=== PATIENT | male | born 1940 | race Caucasian/White ===

== ENCOUNTER 2023-10-03 17:30 | Inpatient (IN) | payer MEDICARE, OTHER, SELFPAY ==
[2023-10-03] VITALS (15 sets, daily range): BP systolic 101–152; BP diastolic 51–91; BMI 20.9
--- NOTE | 2023-10-03 12:01 | ED.GENMED ---
History of Present Illness
General
Chief Complaint: Abnormal Lab Value
Source: patient
Time Seen by Provider: 10/03/23 11:34
Travel History
Have you had any contact with someone who has COVID-19?: No
Do you have any symptoms of coronavirus? Fever > 100 degrees, chills, cough, shortness of breath, sore throat, loss of taste or smell, muscle aches, or headache?: No
History of Present Illness
History of Present Illness:
83-year-old male sent to the emergency room from nephrology office. Patient evidently had abnormal labs showing acute renal failure. Patient is not able to provide a detailed history. He denies any abdominal pain. He denies any fever or chills.
Past History
Past History
ED Past Medical History: CAD, CHF, Hypercholesterolemia and NIDDM
ED Past Surgical History: Appendectomy
Social History
Living: [facility]
Phy Exam
Physical Exam
Physical Exam:
General: Awake, Alert, Oriented X3. No distress, very thin, appears chronically ill, pale complexion
Vitals: Borderline temperature of 100.2 orally
Head: Atraumatic
Eyes: Pupils equal, EOMI
Throat: Airway intact, no exudates, very dry mucosa
Neck: Trachea midline
Lungs: Clear and equal b/l
Heart: Regular rate, no murmurs
Abd: Soft, Nontender, No pulsatile mass
Neuro: Left facial droop, grossly nonfocal
Skin: Warm, dry, no rash
Extremities: pulses equal b/l, no edema
Course
Orders/Labs/Results
Orders:
Orders
10/03/23 11:58
Basic Metabolic Panel Urgent
Complete Blood Count/With Diff Urgent
Lactate Level [Lactic Acid] Urgent
Magnesium Urgent
Phos [Phosphorus] Urgent
10/03/23 12:03
Blood Culture Urgent
JOHN Source: Blood/Venous
Specimen Description:
CR Chest - 2 Views Urgent
Comment:
Reason For Exam: fever
10/03/23 12:04
Blood Culture Urgent
JOHN Source: Blood/Venous
Specimen Description:
10/03/23 12:08
COVID-19 Antigen Urgent
Source: Nasal Swab
Influenza A+B Rapid Molecular Urgent
JOHN Source: Nasal Swab
Specimen Description:
10/03/23 12:36
Type+Screen Urgent
BBK Wristband Number:
10/03/23 12:37
Urinalysis Reflex To Culture Urgent
Date Specimen was Collected: 10/03/23
Time Specimen was Collected: 12:36
Urine Microscopic Reflex Cult Urgent
Urine Culture Urgent
JOHN Source: U
Specimen Description:
Obtained by: Random
Date Specimen was Collected: 10/03/23
Time Specimen was Collected: 12:36
10/03/23 12:56
0.9% Sodium Chloride 500 ml [Nss] 500 ml IV BOLUS
10/03/23 13:40
Cefepime HCl [Maxipime] 2,000 mg IV NOW STA
10/03/23 13:47
Sterile Water [Sterile Water For Injection] 10 ml .ROUTE .[facility]
10/03/23 14:41
Body Fluid for Eosinophils Routine
Urinalysis Routine
Urine Creatinine Routine
Urine Sodium Routine
Renal Only US [US Renal Only W/O Bladder] Routine
Comment:
Reason For Exam: JOSAFAT
10/03/23 14:45
Sterile Water For Inj [Sterile Water For Injection 1000 ml] 1,000 ml Sodium Bicarbonate 150 meq IV 100 mls/hr
Abnormal Lab Results
10/03/23 10/03/23
11:58 12:37
WBC 21.0 H 10^3/uL
(4.8-10.8)
RBC 3.21 L 10^6/uL
(4.70-6.10)
Hgb 9.2 L g/dL
(13.0-18.0)
Hct 29.3 L %
(39.0-52.0)
MCHC 31.4 L g/dL
(33.0-37.0)
Abs Immat Gran (auto) 0.1 H 10^3/uL
(0-0.05)
Absolute Neuts (auto) 18.4 H 10^3/uL
(1.4-6.5)
Absolute Lymphs (auto) 0.9 L 10^3/uL
(1.2-3.4)
Absolute Monos (auto) 1.4 H 10^3/uL
(0.1-0.6)
Immature Gran % 0.7 H %
(0-0.5)
Neutrophils % 87.9 H %
(42.2-75.2)
Lymphocytes % 4.3 L %
(20.5-51.1)
Chloride 108 H mmol/L
(98-107)
Carbon Dioxide 16 L mmol/L
(22-30)
BUN 96 H mg/dl
(9-20)
Creatinine 4.8 H* mg/dL
(0.7-1.3)
Glucose 153 H mg/dl
(70-99)
Ur Occult Blood Reflex 4+ A
(Negative)
Leukocyte Esterase Rfl 2+ A
(Negative)
Urine RBC 30-40 A /HPF
(0-2)
Urine WBC (Reflex) 11-15 A /HPF
(0-5)
Urine Bacteria (Reflex) Moderate A
(Negative)
Urine Albumin (Reflex) 1+ A
(Neg - Trace)
10/03/23 11:58
10/03/23 11:58
Vital Signs
Initial and Last Documented VS:
Initial Vital Signs
Temp Pulse Resp BP Pulse Ox
100.2 F 85 16 117/52 95
10/03/23 11:28 10/03/23 11:28 10/03/23 11:28 10/03/23 11:28 10/03/23 11:28
Last Documented Vital Signs
Temp Pulse Resp BP Pulse Ox
99.4 F 85 16 117/52 95
10/03/23 13:53 10/03/23 11:28 10/03/23 11:28 10/03/23 11:28 10/03/23 11:28
MDM/Problems Addressed
Differential Diagnosis Includes:
Bladder outlet obstruction, dehydration, ATN
MDM/Problems Addressed:
Patient presents with high creatinine. Patient had blood work here about a year ago at which point the creatinine was 1.1. Patient is not able to provide much history. Bladder scan shows 220 cc urine. He was straight cathed. Urine will be sent
for urinalysis and culture. Patient appears dry clinically so we will start some IV fluid. He was noted to have a low-grade fever of 100.2. COVID and flu are negative. Lactate is normal. Chest x-ray shows no acute abnormalities. Patient will
require hospitalization for further evaluation and management of acute renal failure
Chronic conditions affecting care: HTN
*Radiology
Radiology exam reviewed: radiology read reviewed
*Pulse Oximetry
Patient hypoxic: no
*Critical Care Note
Total Time (30-74mins, 75-104mins- exclusive of procedures): Not Applicable
ED Attending Note
-
Portions of this chart may have been created with voice recognition software.� Occasional wrong word or��sound alike� substitutions may have occurred due to the inherent limitations of voice recognition software.
Discharge Plan
Departure
Patient Disposition: Admit
Date of Disposition: 10/03/23
Time of Disposition: 12:57
Admit to: Telemetry
Presentation/result/management discussed w/ accepting MD/DO: Hospitalist
Condition: Fair
Discharge Problem:
Acute renal failure (ARF)
Prescriptions:
No Action
atorvastatin [Lipitor] 40 mg Tablet
40 mg PO DAILY
acetaminophen [Tylenol] 325 mg Tablet
650 mg PO Q4HPRN PRN (Reason: MILD PAIN)
ipratropium-albuterol 0.5 mg-3 mg(2.5 mg base)/3 mL Solution For Nebulization
3 ml INHALATION R Q6HPRN PRN (Reason: SOB)
magnesium hydroxide [Milk of Magnesia] 400 mg/5 mL Suspension
2,400 mg PO DAILY PRN (Reason: CONSTIPATION)
tamsulosin [Flomax] 0.4 mg Capsule
0.4 mg PO DAILY
ferrous sulfate 325 mg (65 mg iron) Tablet
325 mg PO DAILY
esomeprazole magnesium 40 mg Capsule,Delayed Release(Dr/Ec)
40 mg PO DAILY
mometasone 50 mcg/actuation Harmony,Non-Aerosol
2 spray INTRANASAL DAILY
fluticasone propionate 50 mcg/actuation Harmony,Suspension
2 spray INTRANASAL DAILY
finasteride 5 mg Tablet
5 mg PO DAILY
cyclosporine [Restasis] 0.05 % Dropperette
1 drp BOTH EYES DAILY
metoprolol tartrate 25 mg Tablet
25 mg PO BID
mirtazapine 7.5 mg Tablet
7.5 mg PO HS Qty: 30 0RF
acetaminophen [Tylenol] 325 mg Tablet
650 mg PO Q6HPRN PRN (Reason: FEVER)
aspirin 81 mg Tablet,Chewable
81 mg PO DAILY
Hold Instructions: Resume on 10/12/22.
levofloxacin 750 mg tablet
750 mg PO DAILY Qty: 7 0RF
Interventions
Interventions:
*Risk Screen - Suicide Last Done: 10/03/23 11:28
*General Assessment Last Done: 10/03/23 11:28
*Neglect/Abuse Screening Last Done: 10/03/23 11:28
*ED COVID-19 Vaccine History Last Done: 10/03/23 12:00
Discharge Date and Time
Print Language: ARABIC
[2023-10-03 12:29] LABS: % Basophils 0.3 % (0-2); % Immature Granulocytes 0.7 % (0-0.5); % Lymphocytes 4.3 % (20.5-51.1); % Monocytes 6.8 % (1.7-9.3); % Neutrophils 87.9 % (42.2-75.2); Absolute Basophils 0.1 10^3/uL (0-0.2); Absolute Immature Granulocytes 0.1 10^3/uL (0-0.05); Absolute Lymphocytes 0.9 10^3/uL (1.2-3.4); Absolute Monocytes 1.4 10^3/uL (0.1-0.6); Absolute Neutrophils 18.4 10^3/uL (1.4-6.5); Hematocrit 29.3 % (39.0-52.0); Hemoglobin 9.2 g/dL (13.0-18.0); Mean Corp Hgb Conc. 31.4 g/dL (33.0-37.0); Mean Corpuscular Hgb 28.7 pg (27.0-31.0); Mean Corpuscular Volume 91.3 fL (80.0-94.0); Mean Platelet Volume 10.3 fL (7.4-10.4); Nucleated Red Blood Cells % 0 % (-); Platelet Count 318 10^3/uL (130-400); Red Blood Cell Count 3.21 10^6/uL (4.70-6.10)
[2023-10-03 12:48] LABS: Lactic Acid 1.9 mmol/L (0.7-2.0)
[2023-10-03 12:48] LABS: COVID-19 Antigen Negative (Negative)
[2023-10-03 12:51] LABS: Blood Urea Nitrogen 96 mg/dl (9-20); Calcium 8.9 mg/dl (8.4-10.2); Carbon Dioxide 16 mmol/L (22-30); Chloride 108 mmol/L (98-107); Glucose 153 mg/dl (70-99); Magnesium 1.7 mg/dl (1.6-2.3); Phosphorus 4.2 mg/dl (2.5-4.5); Sodium 136 mmol/L (135-145)
[2023-10-03 12:58] LABS: Potassium 4.9 mmol/L (3.5-5.1)
[2023-10-03 12:59] LABS: Urine Albumin 1+ (Neg - Trace); Urine Bilirubin Negative (Negative); Urine Character Slightly Cloudy (Clear); Urine Color Yellow; Urine Glucose Negative (Negative); Urine Ketone Negative (Negative); Urine Leukocyte 2+ (Negative); Urine Nitrite Negative (Negative); Urine Occult Blood 4+ (Negative); Urine Urobilinogen Negative (Neg - 1+)
[2023-10-03] MEDS: NSS 500 IV (13:15)
--- NOTE | 2023-10-03 13:16 | PHANOTE ---
med rec note- patient coming from md office but live at [facility], called [phone] and asked for med list to faxed over. station 2 stated she will need about an hour to get it together
[2023-10-03 13:17] LABS: Urine Bacteria Moderate (Negative); Urine Red Blood Cell 30-40 /HPF (0-2)
[2023-10-03] MEDS: MAXIPIME 2000 MG IV (13:50)
--- NOTE | 2023-10-03 14:01 | HPS.HSE ---
Addendum entered and electronically signed by Alek Tripathi MD 10/03/23 21:41:
Attending Addendum-
I performed a history and physical exam of the patient and discussed his management with the resident. I reviewed the resident's note and agree with the documented findings and plan of care Patient sent to ED from nephro due to JOSAFAT. Patient coming
from [facility] when he has been getting progressively weaker and sustained a fall. H/O from records and daughter/POA. Patient only speaks [place]. Feels full and having difficulty urinating. Full 12 point ROS reviewed and negative except as
documented. Exam: chronically ill appearing CV RRR lungs scattered rhinchi at bases b/l abd soft distended palp bladder LE no edema Skin- dry Plan-
# JOSAFAT on CKD 3a- check renal US, straight cath for urine/elevated PVRs, check Fena start IVF, c/s nephro await urine cx
# Acidosis- start bicarb per nephro repeat labs in am
# B/L PNA/Leukocytosis- start vanco-renally adjust, continue cefepime repeat labs in am
# Dementia- watch for delirium
# CAD/stent- cont meds
# BPH- cont meds
# HLD- cont meds
# GERD- cont meds
# Depression- cont meds
# HTN- stable monitor cont meds
# PreDM- check hba1c check TSH
Dispo- eventual DC back to [facility]/SNF
Time spent coordinating care, review of plan of care with resident, review of records, med rec, consults, notes, labs, rads, d/w nursing, pharmacy, nephro - 78 mins
Original Note:
Family Physician
-
Family Physician: Suhas Pitts
Juan Diego López
Chief Complaint
-
Acute Kidney Injury
History of Present Illness
This is an 83-year-old patient who mainly speaks [place] with PMH of GERD, CAD, dyslipidemia, chronic anemia, iron deficiency anemia, BPH, prediabetic, depression who presented to the ED after being sent over by his avionics supervisor, Dr. Yoo. He
currently lives at [facility] where was noticed that he had rising creatinine on his blood work which he then was taken to see Dr. Yoo. He was in the room with his daughter who provided the history. The daughter states that she had not
noticed any changes from his baseline and [facility] noticed that he was 'weak' a day ago. She also states that in the past he had a Gonzales catheter when he was unable to urinate in the past that was subsequently removed. During
the visit with his avionics supervisor creatinine was 4.8 and he was referred to the ED. The daughter states that their primary care physician is . His other chronic diagnoses have been stable.
Medical History
Past Medical History
Past Medical History: Reports CAD, GERD, HTN and Hypercholesterolemia
Additional Past Medical History:
Prediabetes, depression, BPH, chronic anemia, iron deficiency anemia
Past Surgical History: Reports Appendectomy and Cardiac (stent x1)
Social History
Tobacco: Former Smoker (Quit 35 years ago)
Alcohol: None
Living: [facility]
Family History
Family History: Not pertinent
Allergies / Home Medications
Allergies reflects when Allergies were last updated in 20:20 Mobile.
Home Medications with original date entered in 20:20 Mobile
Home Medications
�Medication �Instructions �Recorded
atorvastatin 40 mg tablet (Lipitor) 40 mg PO QPM High cholesterol 09/06/22
esomeprazole magnesium 40 mg 40 mg PO DAILY Gastrointestinal 09/06/22
capsule,delayed release issue
finasteride 5 mg tablet 5 mg PO DAILY Urinary issue 09/06/22
metoprolol tartrate 25 mg tablet 25 mg PO BID Blood pressure 09/06/22
tamsulosin 0.4 mg capsule (Flomax) 0.4 mg PO QPM Urinary issue 09/06/22
acetaminophen 325 mg tablet 650 mg PO Q4HPRN PRN fever 10/03/23
(Tylenol)
acetaminophen 325 mg tablet 650 mg PO Q6HPRN PRN mild pain 10/03/23
(Tylenol)
aspirin 81 mg tablet,delayed 81 mg PO DAILY 10/03/23
release
brimonidine 0.2 %-timolol 0.5 % 1 drp LEFT EYE BID 10/03/23
eye drops (Combigan)
carboxymethylcellulose 1 drp BOTH EYES HS 10/03/23
sod-hypromell 0.25 %-0.3 % eye
liquid gel drops
cyclosporine 0.05 % eye drops in a 1 drp BOTH EYES Q12H 10/03/23
dropperette (Restasis)
erythromycin 5 mg/gram (0.5 %) eye 0.25 inch LEFT EYE BID 10/03/23
ointment
ferrous sulfate 325 mg (65 mg 325 mg PO BID 10/03/23
iron) tablet
fluticasone propionate 50 2 spray intranasal DAILY 10/03/23
mcg/actuation nasal
spray,suspension
mirtazapine 15 mg tablet 7.5 mg PO HS 10/03/23
Allergy/Medication List:
Patient Allergies
Allergy/AdvReac Type Severity Reaction Status Date / Time
No Known Drug Allergies Allergy Unknown Verified 01/19/23 14:14
Review of Systems
-
History Source: Patient and Family
A 12 point ROS was completed and negative except as noted: Yes
Constitutional: Denies Fever or Chills
Respiratory: Denies Trouble Breathing
Abdomen/GI: Denies Abdominal Pain
Physical Exam
Vital Signs
Vital Signs
Temp Pulse Resp BP Pulse Ox
99.4 F 85 16 117/52 95
10/03/23 13:53 10/03/23 11:28 10/03/23 11:28 10/03/23 11:28 10/03/23 11:28
Physical Exam
General: Appears Chronically Ill (Appears thin)
HEENT: NormoCephalic
Respiratory: Rhonchi
Cardiac: S1/S2, Regular Rhythm and Murmur
GI: Soft and Non Tender
Musculoskeletal: No Edema
Skin: Dry
Neuro: Awake, Alert and Oriented
Psych: Calm
Laboratory Results
-
10/03/23 11:58
10/03/23 11:58
Laboratory Results
Lactic Acid 1.9 mmol/L (0.7-2.0) 10/03/23 11:58
Impression/Plan
-
IMPRESSION:
This is an 83-year-old patient who mainly speaks [place] with PMH of GERD, CAD, dyslipidemia, chronic anemia, iron deficiency anemia, BPH, prediabetic, depression who presented to the ED after being sent over by his avionics supervisor after noticing
increased creatinine at 4.8.
PLAN:
#JOSAFAT/CKD3a
-U/A showed UTI (leukocyte esterase, bacteria), urine culture pending
-Lactate normal
-Nephrology consulted
-Sodium bicarb initiated as per nephrology
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
-urine studies pending
-Bladder scan with straight cath per nephrology
-Started IV fluids, Monitor I/Os
-blood cultures sent
-Monitor BMP, cbc
#Leukocytosis
-CXR today showed mild interstitial airway disease at the posterior lung bases suggesting bibasilar interstitial pneumonia
-abfrebile
-Had single dose of IV cefepime 2000 mg
-Initiated vancomycin
-Monitor CBC and BMP
#Prediabetes
-HbA1c ordered
-Low ISS started
#BPH
-Continue Flomax, finasteride
#Chronic Anemia
-Stable
-Continue ferrous sulfate
#Dyslipidemia
-Continue atorvastatin
#Depression
-Continue mirtazapine
DVT ppx: Hep 5000u Q8
Code: DNR
--- NOTE | 2023-10-03 14:31 | W.CON.NEPH ---
Consultation
-
Date/Time Consultation Requested: October 03, 2023 11 AM
Date/Time Consultation Performed: October 03, 2023 2 PM
Requesting Provider: Dr. Ochoa
Performing Provider: Dr. Agarwal
Reason for Consultation: Acute kidney injury
Medical History
-
Chief Complaint: Acute kidney injury
History of Present Illness:
This is AN 83-year-old [place]wanan-speaking gentleman who currently resides at [facility] for at least the last 8 months time. The history was primarily taken from the daughter. Prior to living at [facility] he had living at home in [facility]
[place] without issues. He had a primary care physician who had seen approximately every other month but got lower to every 6 months. They state that they were never told of any abnormalities with his renal function. The only abnormality is
a new about on his blood work was anemia. Ultimately, he ended up at [facility] for rehabilitation. Daughter had actually considered taking him home at 1 point not long ago as he appeared to be getting stronger. Then more recently he began
getting weaker. At 1 point she says that he had a Gonzales catheter which was then subsequently removed. He also then began having orthostasis and some imbalance and possibly a fall in the bathroom. Blood work had shown progressively rising
creatinine and he was sent to see Dr. Yoo in our office today. At that visit it was noted that his creatinine had risen further to 4.8 and given the history of present to the emergency room for evaluation and admission.
He is on Flomax for BPH, Lipitor for hyperlipidemia, metoprolol for hypertension. These issues have been otherwise fairly stable. The daughter says that he only has prediabetes.
Past Medical History
Glucose intolerance, anemia, depression, hyperlipidemia, hypertension, GERD, ulcerative colitis, CKD unknown stage, overactive bladder, urogenital implants
Social History
Tobacco: Former Smoker
Alcohol: None
Family History
No known CKD
Allergies / Home Medications
Allergy/AdvReac Type Severity Reaction Status Date / Time
No Known Drug Allergies Allergy Unknown Verified 01/19/23 14:14
�Medication �Instructions �Recorded �Confirmed �Type
acetaminophen 325 mg tablet 650 mg PO Q4HPRN PRN MILD PAIN 09/06/22 09/25/22 History
(Tylenol)
atorvastatin 40 mg tablet (Lipitor) 40 mg PO DAILY High cholesterol 09/06/22 09/25/22 History
cyclosporine 0.05 % eye drops in a 1 drp BOTH EYES DAILY Eye condition 09/06/22 09/25/22 History
dropperette (Restasis)
esomeprazole magnesium 40 mg 40 mg PO DAILY Gastrointestinal 09/06/22 09/25/22 History
capsule,delayed release issue
ferrous sulfate 325 mg (65 mg 325 mg PO DAILY Supplement 09/06/22 09/25/22 History
iron) tablet
finasteride 5 mg tablet 5 mg PO DAILY Urinary issue 09/06/22 09/25/22 History
fluticasone propionate 50 2 spray intranasal DAILY Allergies 09/06/22 09/25/22 History
mcg/actuation nasal
spray,suspension
ipratropium 0.5 mg-albuterol 3 mg 3 ml inhalation R Q6HPRN PRN SOB 09/06/22 09/25/22 History
(2.5 mg base)/3 mL nebulization
soln
magnesium hydroxide 400 mg/5 mL 2,400 mg PO DAILY PRN CONSTIPATION 09/06/22 09/25/22 History
oral suspension (Milk of Magnesia)
metoprolol tartrate 25 mg tablet 25 mg PO BID Blood pressure 09/06/22 09/25/22 History
mometasone 50 mcg/actuation nasal 2 spray intranasal DAILY Allergies 09/06/22 09/25/22 History
spray
tamsulosin 0.4 mg capsule (Flomax) 0.4 mg PO DAILY Urinary issue 09/06/22 09/25/22 History
mirtazapine 7.5 mg tablet 7.5 mg PO HS #30 tabs 09/12/22 09/25/22 Rx
acetaminophen 325 mg tablet 650 mg PO Q6HPRN PRN FEVER 09/25/22 09/25/22 History
(Tylenol)
aspirin 81 mg chewable tablet 81 mg PO DAILY Blood clot 09/25/22 09/25/22 History
prevention/tx
levofloxacin 750 mg tablet 750 mg PO DAILY #7 tabs 01/19/23 Rx
Review of Systems
-
No pain, no fevers, no chills. No shortness of breath. No abdominal pain. He has constipation. No issues with urine output. No issues with appetite. Daughter says that he does not drink enough fluid. The remainder of the complete review of
systems was negative.
Physical Exam
Vital Signs
Vital Signs
Temp Pulse Resp BP Pulse Ox
99.4 F 85 16 117/52 95
10/03/23 13:53 10/03/23 11:28 10/03/23 11:28 10/03/23 11:28 10/03/23 11:28
Lab Results
WBC 21.0 10^3/uL (4.8-10.8) H 10/03/23 11:58
RBC 3.21 10^6/uL (4.70-6.10) L 10/03/23 11:58
Hgb 9.2 g/dL (13.0-18.0) L 10/03/23 11:58
Hct 29.3 % (39.0-52.0) L 10/03/23 11:58
Plt Count 318 10^3/uL (130-400) 10/03/23 11:58
Sodium 136 mmol/L (135-145) 10/03/23 11:58
Potassium 4.9 mmol/L (3.5-5.1) 10/03/23 11:58
Chloride 108 mmol/L (98-107) H 10/03/23 11:58
Carbon Dioxide 16 mmol/L (22-30) L 10/03/23 11:58
BUN 96 mg/dl (9-20) H 10/03/23 11:58
Creatinine 4.8 mg/dL (0.7-1.3) H* 10/03/23 11:58
eGFR 11.30 10/03/23 11:58
Glucose 153 mg/dl (70-99) H 10/03/23 11:58
Calcium 8.9 mg/dl (8.4-10.2) 10/03/23 11:58
Phosphorus 4.2 mg/dl (2.5-4.5) 10/03/23 11:58
Physical Exam
Patient is awake alert oriented and in no distress. Mood and affect were pleasant, insight and judgment were good. Pupils are equal round and reactive to light, extraocular movements are intact, sclera were anicteric. Hearing was normal, ears and
nose are intact. Oropharynx was dry. Neck was supple with trachea midline and no thyromegaly. Heart was regular rate and rhythm without rubs. Lower extremities without edema. Lungs were clear to auscultation bilaterally and with normal excursion.
Abdomen was soft, nontender, with normal active bowel sounds, and no hepatosplenomegaly. Skin was without rash and with normal turgor.
Data Reviewed
-
Medical Tests (Nuc Med, Echo etc): Image Personally Visualized and interpreted (Chest x-ray on 10/03/2023 by my reading shows faint bilateral basilar opacity)
Labs: Labs Reviewed by me (Creatinine 4.8, potassium 4.9, bicarbonate 16, phosphorus 4.2, magnesium 1.7, calcium 8.9, hemoglobin 9.2, WBC 21)
Old Records: Reviewed (on September 28, 2023 creatinine 3.66, on September 19, 2023 creatinine 3.48, on September 12, 2023 creatinine 4.08, On September 02, 2023 creatinine 3.76, on September 27, 2022 creatinine 1.48)
Assessment/Plan
-
Assessment:
JOSAFAT
Hypotension relative
Probable pneumonia
Leukocytosis
Metabolic acidosis
Hyperlipidemia
Anemia
Falls
Plan:
IV fluids with bicarbonate
Empiric antibiotics for pneumonia
Renal ultrasound
Urine studies
No fluoroquinolones
Check urine eosinophils
I discussed with length with the daughter regarding the possibility of dialysis. She says that they would not refuse dialysis if she required it.
[2023-10-03] MEDS: SODIUM BICARBONATE 1150 MEQ IV (15:27)
[2023-10-03] MEDS: VANCOCIN 300 MG IV (17:22)
[2023-10-03] MEDS: VANCOCIN 300 ML IV (17:22)
[2023-10-03] MEDS: ASPIR LOW (ENTERIC COATED) 81 MG PO (21:00)
[2023-10-03] MEDS: FEOSOL 325 MG PO (21:00)
[2023-10-03] MEDS: LIPITOR 40 MG PO (21:00)
[2023-10-03] MEDS: FLOMAX 0.400000000000000022 MG PO (21:00)
[2023-10-03] MEDS: LOPRESSOR 25 MG PO (21:00)
[2023-10-03] MEDS: REMERON 7.5 MG PO (21:33)
[2023-10-03] MEDS: RESTASIS 0.05% OPHTHALMIC EMULSION 1 DROPS BOTH EYES (21:34)
[2023-10-03] MEDS: REFRESH CELLUVISC GEL 1 DROPS BOTH EYES (21:34)
[2023-10-03] MEDS: COMBIGAN EYE DROPS 1 DROP LEFT EYE (21:35)
[2023-10-04] VITALS (18 sets, daily range): BP systolic 90–128; BP diastolic 45–73; BMI 20.9
[2023-10-04] MEDS: HEPARIN 5000 UNITS SC ×4 (00:26→23:52)
[2023-10-04] MEDS: SODIUM BICARBONATE 1150 MEQ IV (03:02)
[2023-10-04 06:33] LABS: % Basophils 0.6 % (0-2); % Eosinophils 2.9 % (0-6); % Monocytes 9.3 % (1.7-9.3); % Neutrophils 75.2 % (42.2-75.2); Absolute Basophils 0.1 10^3/uL (0-0.2); Absolute Eosinophils 0.5 10^3/uL (0-0.7); Absolute Immature Granulocytes 0.2 10^3/uL (0-0.05); Absolute Lymphocytes 1.7 10^3/uL (1.2-3.4); Absolute Monocytes 1.5 10^3/uL (0.1-0.6); Absolute Neutrophils 11.9 10^3/uL (1.4-6.5); Hematocrit 23.6 % (39.0-52.0); Hemoglobin 7.5 g/dL (13.0-18.0); Mean Corp Hgb Conc. 31.8 g/dL (33.0-37.0); Mean Corpuscular Hgb 28.7 pg (27.0-31.0); Mean Corpuscular Volume 90.4 fL (80.0-94.0); Mean Platelet Volume 10.3 fL (7.4-10.4); Nucleated Red Blood Cells % 0 % (-); Platelet Count 241 10^3/uL (130-400); Red Blood Cell Count 2.61 10^6/uL (4.70-6.10); White Blood Cell Count 15.7 10^3/uL (4.8-10.8)
[2023-10-04 07:28] LABS: Blood Urea Nitrogen 103 mg/dl (9-20); Calcium 8.1 mg/dl (8.4-10.2); Carbon Dioxide 21 mmol/L (22-30); Chloride 105 mmol/L (98-107); Estimated Creatinine Clearance 11 ml/min; Glucose 86 mg/dl (70-99); Potassium 4.2 mmol/L (3.5-5.1); Sodium 136 mmol/L (135-145); eGFR 14.06
[2023-10-04 08:05] LABS: Free T4 1.54 ng/dl (0.78-2.19)
[2023-10-04] MEDS: PROSCAR 5 MG PO (08:33)
[2023-10-04] MEDS: PROTONIX 40 MG PO (08:33)
[2023-10-04] MEDS: LOPRESSOR 25 MG PO ×2 (08:35→19:54)
[2023-10-04] MEDS: ASPIR LOW (ENTERIC COATED) 81 MG PO (08:35)
[2023-10-04 08:36] LABS: Urine Protein 71 mg/dl; Urine Sodium 28 mmol/L (30-90)
[2023-10-04] MEDS: COMBIGAN EYE DROPS 1 DROP LEFT EYE ×2 (08:36→20:20)
[2023-10-04] MEDS: FEOSOL 325 MG PO (08:36)
[2023-10-04 08:40] LABS: Body Fluid for Eosinophils No Eosinophils seen
[2023-10-04 09:09] LABS: Glycohemoglobin (HgbA1c) 5.6 % (4.0-5.6)
[2023-10-04] MEDS: RESTASIS 0.05% OPHTHALMIC EMULSION BOTH EYES (10:00)
[2023-10-04 10:32] LABS: Vancomycin Random 11.2 ug/ml
--- NOTE | 2023-10-04 10:47 | PHA.VAN.IN ---
Assessment
- Assessment
Renal Function: Appears elevated from baseline (SCR 4.8-->4 vs 1.1 in 2022)
Concomitant Antimicrobials: cefepime
Laboratory Tests
10/04/23
09:55
Random Vancomycin 11.2
Level drawn ~16.5H after 1500mg loading dose
Plan
- Plan
Initial / Loading Dose: 1500mg - 10/02 17:22
Maintenance Regimen: dosing by level - give 750mg x1 today
Monitoring: random 10/04 0600
Pharmacokinetics Vancomycin I
- -
Patient Age: 83
Patient Sex: Male
Vancomycin Day #: 1
Indication: Pulmonary/Respiratory
Requesting Provider: Miko Penn
Pertinent Antimicrobial Allergies:
NKDA
Height / Weight:
Height 5 ft 6 in
Actual Weight 58.6 kg
- Vital Signs / Lab Results
Temp Pulse Resp BP Pulse Ox
97.8 F 72 16 117/55 97
10/04/23 08:34 10/04/23 08:34 10/04/23 08:34 10/04/23 08:34 10/04/23 08:34
Lab Results - Hematology
10/03/23 10/04/23
11:58 06:19
WBC 21.0 H 15.7 H
Lab Results - Chemistry
10/03/23 10/04/23
11:58 06:19
BUN 96 H 103 H*
Creatinine 4.8 H* 4.0 H
Estimated Creat Clear 11
10/03/23
11:58
Lactic Acid 1.9
Lab Results - Urine
10/03/23
12:37
Urine Nitrite (Reflex) Negative
Leukocyte Esterase Rfl 2+ A
Urine WBC (Reflex) 11-15 A
Urine Bacteria (Reflex) Moderate A
Microbiology Results
10/03/23 12:37 Urine Culture - Preliminary
Urine Staphylococcus aureus
10/03/23 12:08 Influenza Types A & B (GERARD) - Final
Nasal Swab Negative for Influenza A & B, NAAT
Negative results must be combined with clinical observations
and patient history.
Nucleic Acid Amplification test (NAAT)performed on the
GFS IT platform.
--- NOTE | 2023-10-04 11:40 | W.PN.HOSP.TC ---
Addendum entered and electronically signed by Alek Tripathi MD 10/04/23 22:22:
Attending Addendum-
I saw and evaluated the patient. I reviewed the resident's note and agree with the documented findings and plan of care Patient speaks broken Nepali, primarily Maldivian. wet moist cough, Complains of not having BM and urinary difficulty.. Full 12
point ROS reviewed and negative except as documented. Exam: chronically ill appearing CV RRR lungs scattered rhonchi at bases b/l abd soft NT POS BS non palp bladder LE no edema Skin-dry Plan-
# JOSAFAT on CKD 3a- improving, renal US reviewed multicystic, straight cath for urine/elevated PVRs, Fena@ 1 likely prerenal but r/o intrinsic, cont IVF, nephro input appreciated await urine cx sens-s aureus
# Acidosis- resolving, DC bicarb cont IVF repeat labs in am
# UTI- cont abx- vanco- staph aureus awaiting sensitivities
# Anemia- likely due to chronic disease and GRABIEL- cont iron, repeat CBC in am no indication for transfusion at this time
# Urinary Retention/BPH- cont straight cath prn for elevated PVRs cont to monitor cont meds start bowel reg
# B/L PNA/Leukocytosis- likely aspiration, cont vanco-renally adjust, DC cefepime start Unasyn, speech eval
# Dysphagia- modify diet, speech eval
# Dementia- watch for delirium
# CAD/stent- cont meds
# HLD- cont meds
# GERD- cont meds
# Depression- cont meds
# HTN- stable monitor cont meds
# PreDM-hba1c 5.6 TSH mild elevation normal t4
Dispo- eventual DC back to [facility]/SNF
Time spent coordinating care, review of plan of care with resident, review of records, med rec, consults, notes, labs, rads, d/w nursing, pharmacy - 58 mins
Original Note:
Today's Communication/Plan
-
Discontinued Cefepime, started Unasyn
Continue Vancomycin
Speech eval
Assessment / Plan
Assessment / Plan
IMPRESSION:
This is an 83-year-old patient who mainly speaks Maldivian with PMH of GERD, CAD, dyslipidemia, chronic anemia, iron deficiency anemia, BPH, prediabetic, depression who presented to the ED after being sent over by his dragline operator helper after noticing
increased creatinine at 4.8.
PLAN:
#JOSAFAT (most likely due to prerenal/hypovolemia)/CKD3a
-U/A showed UTI (leukocyte esterase, bacteria), urine culture pending
-Lactate normal
-Nephrology following
-Sodium bicarb initiated as per nephrology
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
-Bladder scan with straight cath per nephrology
-possible retention due to backed up stool; started colace
-JOSAFAT most likely due to prerenal causes (FeNA 1.1%, urine sodium 28)
-Creatinine decreased to 4, BUN increased to 103
-Continue IV fluids, Monitor I/Os
-blood cultures negative
-Speech eval: changed diet to bite sized/thin liquids for aspiration precautions
-PT/OT eval pending
-Monitor BMP, cbc
#?Pneumonia
-CXR today showed mild interstitial airway disease at the posterior lung bases suggesting bibasilar interstitial pneumonia
-abfrebile, mild bilateral rhonchi
-WBC trended down
-has bed sore located on sacrum
-Discontinued cefepime
-Started Unasyn for empiric coverage and possible aspiration pneumonia coverage
-Continue vancomycin
-Monitor CBC and BMP
#Prediabetes
-HbA1c 5.6%
-Low ISS
#BPH
-Continue Flomax, finasteride
#Chronic Anemia
-HB 7.5 today
-Hold ASA
-Ordered fecal occult blood test
-Continue ferrous sulfate
#Dyslipidemia
-Continue atorvastatin
#Depression
-Continue mirtazapine
DVT ppx: Hep 5000u Q8
Code: DNR
Anticipated Discharge: > 48 hours
Subjective/Interval History
-
Date of Service: October 04, 2023
Objective Data
-
Labs:
Laboratory Results
10/04/23
06:19
WBC 15.7 H
Hgb 7.5 L
Hct 23.6 L
Plt Count 241 D
Sodium 136
Potassium 4.2
Chloride 105
Carbon Dioxide 21 L
BUN 103 H*
Creatinine 4.0 H
Glucose 86
Calcium 8.1 L
Vital Signs:
Vital Signs
Temp Pulse Resp BP Pulse Ox
97.8 F 72 16 117/55 97
10/04/23 08:34 10/04/23 08:34 10/04/23 08:34 10/04/23 08:34 10/04/23 08:34
Review of Systems
-
Unable to obtain full review of systems at this time due to: Language Barrier
History Source: Patient
Physical Exam
-
General: No Apparent Distress and Appears Chronically Ill (thin)
HEENT: Normocephalic
Respiratory: Rhonchi (bilateral mild)
Cardiac: Regular Rhythm and S1/S2
GI: Soft and Nondistended
Musculoskeletal: No Edema
Skin: Dry
Neuro: Awake, Alert and Oriented
Psych: Calm
[2023-10-04 11:51] LABS: Glucose - Point of Care 126 mg/dl (70-99)
[2023-10-04] MEDS: VANCOCIN 150 IV (14:00)
--- NOTE | 2023-10-04 14:30 | W.PN.NEPH.PH ---
Today's Communication / Plan
-
Maintain IV fluid support
Obtain autoimmune serologies
Assessment/Plan
-
Assessment:
JOSAFAT (creatinine was 1.1 09/27/22)
Hypotension
Probable pneumonia
Leukocytosis
Metabolic acidosis
Hyperlipidemia
Anemia
Falls
Staph UTI
Plan:
IV fluids with bicarbonate to continue for metabolic acidosis and hypotension
JOSAFAT could be infectious mediated in setting of staph UTI
Creatinine with modest improvement from 4.8-4 but BUN now over 100
Empiric antibiotics for pneumonia
Renal ultrasound: Multicystic kidneys with increased renal cortical echogenicity, no evidence of hydronephrosis
Urine studies:UA:notes; 4+ blood 1+ Albumin, urine protein to creatinine ratio 1 g, urine eosinophils negative
No fluoroquinolones
We will obtain serological workup for autoimmune vasculitides, spep
I discussed again with length with the daughter regarding the possibility of dialysis. She says that they would not refuse dialysis if she required it.
I explained to the daughter that if he would be initiated on dialysis he will likely live in a assisted for the rest of his life
-
-
Date of Service: October 04, 2023
CC / HPI / ROS
-
Chief Complaint:
Acute kidney and
History of Present Illness:
Hemodynamically labile
Staph UTI now on vancomycin
Creatinine down to 4 but BUN now greater than 100
Review of Systems:
Mental status changes persist
No significant postvoid on bladder scan
No fevers
No reported shortness of breath or chest pain
Labs
-
Labs:
WBC 15.7 10^3/uL (4.8-10.8) H 10/04/23 06:19
RBC 2.61 10^6/uL (4.70-6.10) L 10/04/23 06:19
Hgb 7.5 g/dL (13.0-18.0) L 10/04/23 06:19
Hct 23.6 % (39.0-52.0) L 10/04/23 06:19
Plt Count 241 10^3/uL (130-400) D 10/04/23 06:19
Sodium 136 mmol/L (135-145) 10/04/23 06:19
Potassium 4.2 mmol/L (3.5-5.1) 10/04/23 06:19
Chloride 105 mmol/L (98-107) 10/04/23 06:19
Carbon Dioxide 21 mmol/L (22-30) L 10/04/23 06:19
BUN 103 mg/dl (9-20) H* 10/04/23 06:19
Creatinine 4.0 mg/dL (0.7-1.3) H 10/04/23 06:19
eGFR 14.06 10/04/23 06:19
Glucose 86 mg/dl (70-99) 10/04/23 06:19
Calcium 8.1 mg/dl (8.4-10.2) L 10/04/23 06:19
Phosphorus 4.2 mg/dl (2.5-4.5) 10/03/23 11:58
Physical Exam
-
Vital Signs:
Vital Signs
Temp Pulse Resp BP Pulse Ox
98.1 F 68 16 115/45 97
10/04/23 12:08 10/04/23 12:08 10/04/23 08:34 10/04/23 12:08 10/04/23 12:08
Cardiovascular:: Regular rate and rhythm
Respiratory:: Bilateral: CTA (decreased breathsounds to bases)
Lung Excursion:: Normal
Abdomen:: Nontender
Extremity Edema:: None: Bilateral:
--- NOTE | 2023-10-04 14:58 | PTOTSP ---
Speech Therapy Swallowing Assessment
Intermittent signs of aspiration when drinking thin liquids rapidly and consecutively. Otherwise, minimal coughing that is difficult to credit to swallowing vs baseline.
Recommend
1. Downgrade to IDDSI level 6 (soft, bite-sized) and Thin Liquids by single sips.
2. Fully upright with meals.
3. Meds whole in applesauce.
4. Consider VSE to objectively assess pharyngeal swallow if clinical picture concerning for aspiration pneumonia.
[2023-10-04] MEDS: MAXIPIME 1000 MG IV (15:11)
[2023-10-04] MEDS: STERILE WATER FOR INJECTION 10 ML IV (15:11)
[2023-10-04] MEDS: SODIUM BICARBONATE IV (16:20)
[2023-10-04] MEDS: NSS 1000 IV (16:20)
[2023-10-04 17:51] LABS: Glucose - Point of Care 153 mg/dl (70-99)
[2023-10-04] MEDS: FLOMAX 0.400000000000000022 MG PO (19:54)
[2023-10-04] MEDS: COLACE 100 MG PO (19:54)
[2023-10-04] MEDS: LIPITOR 40 MG PO (19:54)
[2023-10-04] MEDS: UNASYN IV (19:55)
[2023-10-04] MEDS: RESTASIS 0.05% OPHTHALMIC EMULSION 1 DROPS BOTH EYES (20:20)
[2023-10-04 21:07] LABS: Glucose - Point of Care 116 mg/dl (70-99)
[2023-10-04] MEDS: REMERON 7.5 MG PO (21:35)
[2023-10-04] MEDS: REFRESH CELLUVISC GEL 1 DROPS BOTH EYES (22:28)
[2023-10-05] VITALS (7 sets, daily range): BP systolic 113–177; BP diastolic 62–71; PULSE 66; O2SAT 98
[2023-10-05 00:42] LABS: Complement C3 97 mg/dl (88-165)
[2023-10-05] MEDS: NSS 1000 IV ×2 (01:55→12:11)
[2023-10-05 05:41] LABS: % Basophils 0.5 % (0-2); % Eosinophils 4.6 % (0-6); % Immature Granulocytes 1.1 % (0-0.5); % Lymphocytes 10.4 % (20.5-51.1); % Monocytes 8.8 % (1.7-9.3); % Neutrophils 74.6 % (42.2-75.2); Absolute Basophils 0.1 10^3/uL (0-0.2); Absolute Eosinophils 0.6 10^3/uL (0-0.7); Absolute Immature Granulocytes 0.2 10^3/uL (0-0.05); Absolute Lymphocytes 1.4 10^3/uL (1.2-3.4); Absolute Monocytes 1.2 10^3/uL (0.1-0.6); Absolute Neutrophils 9.8 10^3/uL (1.4-6.5); Hematocrit 23.9 % (39.0-52.0); Hemoglobin 7.5 g/dL (13.0-18.0); Mean Corp Hgb Conc. 31.4 g/dL (33.0-37.0); Mean Corpuscular Hgb 28.5 pg (27.0-31.0); Mean Corpuscular Volume 90.9 fL (80.0-94.0); Nucleated Red Blood Cells % 0 % (-); Platelet Count 258 10^3/uL (130-400); Red Blood Cell Count 2.63 10^6/uL (4.70-6.10); Red Cell Dist. Width 12.9 % (11.5-14.5); White Blood Cell Count 13.1 10^3/uL (4.8-10.8)
[2023-10-05 05:59] LABS: Lactic Acid 0.8 mmol/L (0.7-2.0)
[2023-10-05 06:03] LABS: NT-proBNP 7990 pg/ml
[2023-10-05 06:06] LABS: Vancomycin Random 19.1 ug/ml
[2023-10-05 06:09] LABS: Blood Urea Nitrogen 94 mg/dl (9-20); Calcium 7.8 mg/dl (8.4-10.2); Carbon Dioxide 24 mmol/L (22-30); Chloride 108 mmol/L (98-107); Creatine Phosphokinase 37 U/L (55-170); Estimated Creatinine Clearance 10 ml/min; Glucose 89 mg/dl (70-99); Iron 51 ug/dl (49-181); Phosphorus 3.3 mg/dl (2.5-4.5); Potassium 4.1 mmol/L (3.5-5.1); Sodium 139 mmol/L (135-145); eGFR 12.54
[2023-10-05 06:23] LABS: Percent Saturation 39 % (20-50); Total Iron Binding Capacity 129 ug/dl (261-462)
[2023-10-05 06:36] LABS: Cortisol, Random 22.3 ug/dl
--- NOTE | 2023-10-05 08:22 | W.PN.HOSP.TC ---
Addendum entered and electronically signed by Alek Tripathi MD 10/05/23 22:17:
Attending Addendum-
I saw and evaluated the patient. I reviewed the resident's note and agree with the documented findings and plan of care Patient speaks broken Latvian, primarily Micronesian. seen with daughter present. Patient complins mech altered food. Full 12 point
ROS reviewed and negative except as documented. Exam: chronically ill appearing CV RRR lungs scattered rhonchi at bases b/l abd soft NT POS BS non palp bladder LE no edema Skin-dry Plan-
# JOSAFAT on CKD 3a- worsening, renal US reviewed multicystic, straight cath for urine/elevated PVRs, Fena @ 1 likely prerenal but r/o intrinsic, cont IVF, nephro input appreciated daughter would like to think about dialysis and hospice care cont
manitol overall poor prognosis labs pending
# Acidosis- resolved s/p bicarb, repeat labs in am
# UTI- MSSA sens to unasyn- DC vanco
# Anemia- likely due to chronic disease and GRABIEL- cont iron, repeat CBC in am no indication for transfusion at this time
# Urinary Retention/BPH- cont straight cath prn for elevated PVRs cont to monitor cont meds start bowel reg
# B/L PNA/Leukocytosis- aspiration, cont Unasyn, speech therapy
# Dysphagia- VFSS ordered and resulted- d/w speech diet ordered written
# Dementia- watch for delirium
# CAD/stent- cont meds
# HLD- cont meds
# GERD- cont meds
# Depression- cont meds
# HTN- stable monitor cont meds
# PreDM-hba1c 5.6 TSH mild elevation normal t4
Dispo- eventual DC back to [facility]/SNF
Time spent coordinating care, review of plan of care with resident, review of records, med rec, consults, notes, labs, rads, d/w nursing, pharmacy and POA would like to consider hospice care- 59 mins
Original Note:
Today's Communication/Plan
-
Continue Unasyn
Discussed with daughter/patient about quality of life care/hospice/comfort care, patient to still decide.
Assessment / Plan
Assessment / Plan
IMPRESSION:
This is an 83-year-old patient who mainly speaks Micronesian with PMH of GERD, CAD, dyslipidemia, chronic anemia, iron deficiency anemia, BPH, prediabetic, depression who presented to the ED after being sent over by his physician office secretary after noticing
increased creatinine at 4.8.
PLAN:
#JOSAFAT (most likely due to prerenal/hypovolemia)/CKD3a
-U/A showed UTI (leukocyte esterase, bacteria), urine culture pending
-Lactate normal
-Nephrology following
-Sodium bicarb initiated as per nephrology
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
-Bladder scan with straight cath per nephrology
-Continue colace due to backed up stool
-JOSAFAT most likely due to prerenal causes (FeNA 1.1%, urine sodium 28)
-Creatinine increased today to 4.4, BUN decreased to 94
-Continue IV fluids, Monitor I/Os
-blood cultures negative
-Video swallow study done: changed diet to minced and moist, mildly thick liquids rec; aspiration concerns
-Due to possible dialysis/kidney biopsy, discussed with daughter of quality of life aspects and option of comfort care/hospice (she will decide tomorrow)
-Monitor BMP, cbc
#?Pneumonia
-CXR today showed mild interstitial airway disease at the posterior lung bases suggesting bibasilar interstitial pneumonia
-abfrebile, mild bilateral rhonchi
-WBC trended down
-has bed sore located on sacrum
-Discontinued cefepime
-Continue Unasyn for MSSA
-Discontinued vancomycin
-Monitor CBC and BMP
#Prediabetes
-HbA1c 5.6%
-Low ISS
#BPH
-Continue Flomax, finasteride
#Chronic Anemia
-HB 7.5 today
-Hold ASA
-Fecal occult blood test pending
-Continue ferrous sulfate
#Dyslipidemia
-Continue atorvastatin
#Depression
-Continue mirtazapine
DVT ppx: Hep 5000u Q8
Code: DNR
Anticipated Discharge: > 48 hours
Subjective/Interval History
-
Date of Service: October 05, 2023
Objective Data
-
Labs:
Laboratory Results
10/05/23
05:32
WBC 13.1 H
Hgb 7.5 L
Hct 23.9 L
Plt Count 258
Sodium 139
Potassium 4.1
Chloride 108 H
Carbon Dioxide 24
BUN 94 H
Creatinine 4.4 H*
Glucose 89
Calcium 7.8 L
Vital Signs:
Vital Signs
Temp Pulse Resp BP Pulse Ox
98.1 F 74 18 128/67 95
10/05/23 08:03 10/05/23 08:03 10/05/23 08:03 10/05/23 08:03 10/05/23 08:03
I&O
10/04/23 10/05/23 10/06/23
06:59 06:59 06:59
Intake Total 800 / 800
Balance 800 / 800
Review of Systems
-
History Source: Patient
All other systems: Reviewed and negative
[2023-10-05 08:53] LABS: Glucose - Point of Care 102 mg/dl (70-99)
[2023-10-05 08:55] LABS: Anti Streptolysin Negative (Negative)
[2023-10-05] MEDS: LOPRESSOR 25 MG PO ×2 (09:05→21:07)
[2023-10-05] MEDS: PROSCAR 5 MG PO (09:05)
[2023-10-05] MEDS: COMBIGAN EYE DROPS 1 DROP LEFT EYE ×2 (09:05→21:07)
[2023-10-05] MEDS: FEOSOL 325 MG PO (09:06)
[2023-10-05] MEDS: COLACE 100 MG PO ×2 (09:06→21:07)
[2023-10-05] MEDS: HEPARIN 5000 UNITS SC ×3 (09:06→22:49)
[2023-10-05] MEDS: PROTONIX 40 MG PO (09:08)
[2023-10-05] MEDS: RESTASIS 0.05% OPHTHALMIC EMULSION 1 DROPS BOTH EYES ×2 (09:08→21:07)
--- NOTE | 2023-10-05 10:53 | PHA.VAN.FU ---
Vancomycin Assessment / Plan
- Assessment
Renal Function: SCR Increasing
WBC's are: Trending Down
In the past 24 hrs, patient has been: Afebrile
Concomitant Antimicrobials: ampicillin/sulbactam
- Assessment - Therapeutic Drug Monitoring
Random Level: 19.1 - drawn ~15.5H after previous dose of 750mg
- Dosing Plan
Dosing by Level: Hold off on dosing today
- Monitoring Plan
Random Level: 10/05 599
- Follow Up
Pharmacy will continue to follow.
Vancomycin Follow UP
- -
Patient Age: 83
Patient Sex: Male
Vancomycin Day #: 2
Indication: Pulmonary/Respiratory
Requesting Provider: Miko Penn
Pertinent Antimicrobial Allergies:
NKDA
Height / Weight:
Height 5 ft 6 in
Actual Weight 58.6 kg
- Vital Signs / Lab Results
Temp Pulse Resp BP Pulse Ox
98.1 F 74 18 128/67 95
10/05/23 08:03 10/05/23 08:03 10/05/23 08:03 10/05/23 08:03 10/05/23 08:03
Lab Results - Hematology
10/03/23 10/04/23 10/05/23
11:58 06:19 05:32
WBC 21.0 H 15.7 H 13.1 H
Lab Results - Chemistry
10/03/23 10/04/23 10/05/23
11:58 06:19 05:32
BUN 96 H 103 H* 94 H
Creatinine 4.8 H* 4.0 H 4.4 H*
Estimated Creat Clear 11 10
10/03/23 10/05/23
11:58 05:32
Lactic Acid 1.9 0.8
Microbiology Results
10/03/23 12:37 Urine Culture - Final
Urine Staphylococcus aureus
S aureus-Methicillin Sensitive
10/03/23 12:04 Blood Culture - Preliminary
Blood/Venous No Growth in 24 hours- Final report to follow
10/03/23 12:03 Blood Culture - Preliminary
Blood/Venous No Growth in 24 hours- Final report to follow
10/03/23 12:08 Influenza Types A & B (GERARD) - Final
Nasal Swab Negative for Influenza A & B, NAAT
Negative results must be combined with clinical observations
and patient history.
Nucleic Acid Amplification test (NAAT)performed on the
The [employer] platform.
Therapeutic Drug Monitoring
Random Vancomycin 19.1 ug/ml 10/05/23 05:32
[2023-10-05 11:46] LABS: Glucose - Point of Care 142 mg/dl (70-99)
--- NOTE | 2023-10-05 12:16 | PTOTSP ---
Addendum entered and electronically signed by ST Ghada 10/05/23 12:21:
6. Oral care 3-5x daily
Original Note:
Video Swallow Study
Summary: Patient presents with at least mild-moderate oral and moderate pharyngeal dysphagia. Etiology of dysphagia may be due to dementia in combination with acute illness/deconditioning. Please see patient care note for full details of
penetration/aspiration and swallowing physiology.
Recommend:
1. IDDSI Level 5 Minced and Moist, IDDSI Level 2 Mildly Thick Liquids via CUP with CHIN TUCK
2. 1:1 supervision
3. Strategies: upright to 90 degrees, small single sips/bites, no straws, tuck chin when swallowing
4. Medications - crushed (if medically cleared) in puree
5. Dysphagia therapy at the acute care level. Consider EMST at the outpatient level.
[2023-10-05] MEDS: STERILE WATER FOR INJECTION IV (13:26)
--- NOTE | 2023-10-05 14:06 | W.PN.NEPH.PH ---
Today's Communication / Plan
-
Arrange for tunneled dialysis catheter for tomorrow
Dialysis to be initiated tomorrow
Assessment/Plan
-
Assessment:
JOSAFAT (creatinine was 1.1 09/27/22)
Hypotension
Probable pneumonia
Leukocytosis
Metabolic acidosis
Hyperlipidemia
Anemia
Falls
Staph UTI
Plan:
IV fluids with bicarbonate to continue for metabolic acidosis and hypotension
JOASFAT could be infectious mediated in setting of staph UTI
Creatinine back up to 4.4
Will discontinue further IV fluids his kidney function and azotemia not responding
Empiric antibiotics for pneumonia
Renal ultrasound: Multicystic kidneys with increased renal cortical echogenicity, no evidence of hydronephrosis
Urine studies:UA:notes; 4+ blood 1+ Albumin, urine protein to creatinine ratio 1 g, urine eosinophils negative
No fluoroquinolones
We will obtain serological workup for autoimmune vasculitides, spep
Spoke with daughter who agrees to proceed forth with dialysis
I will obtain IR consultation for PermCath placement tomorrow
We will initiate dialysis tomorrow afternoon
-
-
Date of Service: October 05, 2023
CC / HPI / ROS
-
Chief Complaint:
Acute kidney and
History of Present Illness:
Hemodynamically stable
Staph UTI now on Unasyn
Creatinine up to 4.4 with BUN of 94
Review of Systems:
Mental status changes some improved
No significant postvoid on bladder scan
No fevers
No reported shortness of breath or chest pain
Labs
-
Labs:
WBC 13.1 10^3/uL (4.8-10.8) H 10/05/23 05:32
RBC 2.63 10^6/uL (4.70-6.10) L 10/05/23 05:32
Hgb 7.5 g/dL (13.0-18.0) L 10/05/23 05:32
Hct 23.9 % (39.0-52.0) L 10/05/23 05:32
Plt Count 258 10^3/uL (130-400) 10/05/23 05:32
Sodium 139 mmol/L (135-145) 10/05/23 05:32
Potassium 4.1 mmol/L (3.5-5.1) 10/05/23 05:32
Chloride 108 mmol/L (98-107) H 10/05/23 05:32
Carbon Dioxide 24 mmol/L (22-30) 10/05/23 05:32
BUN 94 mg/dl (9-20) H 10/05/23 05:32
Creatinine 4.4 mg/dL (0.7-1.3) H* 10/05/23 05:32
eGFR 12.54 10/05/23 05:32
Glucose 89 mg/dl (70-99) 10/05/23 05:32
Calcium 7.8 mg/dl (8.4-10.2) L 10/05/23 05:32
Phosphorus 3.3 mg/dl (2.5-4.5) 10/05/23 05:32
Qrw-E-Fnpqlgkrsya Pept 7990 pg/ml 10/05/23 05:32
Physical Exam
-
Vital Signs:
Vital Signs
Temp Pulse Resp BP Pulse Ox
98.2 F 74 17 113/63 98
10/05/23 11:49 10/05/23 08:03 10/05/23 11:49 10/05/23 11:49 10/05/23 11:49
Cardiovascular:: Regular rate and rhythm
Respiratory:: Bilateral: Coarse
Lung Excursion:: Normal
Abdomen:: Nontender and Soft
Bowel Sounds:: Normal
Extremity Edema:: None: Bilateral:
Gonzales Catheter: No
[2023-10-05 17:40] LABS: Glucose - Point of Care 117 mg/dl (70-99)
[2023-10-05] MEDS: FLOMAX 0.400000000000000022 MG PO (17:51)
[2023-10-05] MEDS: LIPITOR 40 MG PO (17:51)
[2023-10-05] MEDS: UNASYN IV (17:52)
[2023-10-05] MEDS: REMERON 7.5 MG PO (21:08)
[2023-10-05] MEDS: REFRESH CELLUVISC GEL 1 DROPS BOTH EYES (21:11)
--- NOTE | 2023-10-05 22:10 | PTCARENOTE ---
Pt arrived to unit as a transfer from room 408. Pt arrived in a bed from [facility] and the beds were swapped out. Pt immediately had their telemetry box swapped as well, added to the monitor at the nurse's station, and pt in NSR. Pt VSS and denies any
pain. Pt does speak [place]inean but can answer yes or no questions in Macedonian. Pt oriented to the room and call damon is within reach.
[2023-10-05 22:26] LABS: Glucose - Point of Care 123 mg/dl (70-99)
[2023-10-06] VITALS (8 sets, daily range): BP systolic 64–162; BP diastolic 68–91; BMI 21.0
[2023-10-06 07:26] LABS: Glucose - Point of Care 86 mg/dl (70-99)
--- NOTE | 2023-10-06 08:17 | W.PN.HOSP.TC ---
Addendum entered and electronically signed by Alek Tripathi MD 10/06/23 20:54:
Attending Addendum-
I saw and evaluated the patient. I reviewed the resident's note and agree with the documented findings and plan of care Patient speaks broken Italian NO complaints. I'I feel better.' Full 12 point ROS reviewed and negative except as documented.
Exam: chronically ill appearing CV RRR lungs scattered rhonchi at bases b/l abd soft NT POS BS non palp bladder LE no edema Skin-dry Plan-
# ESRD- non anuric, new, cr stable renal US reviewed multicystic, nephro on board for tunneled cath placement 10/05 and HD starting 10/06
# Sepsis secondary to B/L Aspiration PNA- cont Unasyn, speech therapy on board with modified diet, aspiration precautions,
# Acidosis- resolved s/p bicarb, repeat labs in am
# UTI- MSSA- cont unasyn
# Anemia- likely due to chronic disease and GRABIEL- cont iron, repeat CBC in am, ABIGAIL during HD
# Urinary Retention/BPH- cont straight cath prn for elevated PVRs cont to monitor cont meds cont bowel reg
# Dysphagia- VFSS ordered and resulted- d/w speech diet ordered written
# Dementia- watch for delirium
# CAD/stent- cont meds
# HLD- cont meds
# GERD- cont meds
# Depression- cont meds
# HTN- stable monitor cont meds
# PreDM-hba1c 5.6 TSH mild elevation normal t4
Dispo- eventual DC back to [facility]/SNF
Time spent coordinating care, review of plan of care with resident, review of records, med rec, consults, notes, labs, rads, d/w nursing, pharmacy and POA- 63 mins
Original Note:
Today's Communication/Plan
-
Tunnel catheter procedure planned
Assessment / Plan
Assessment / Plan
IMPRESSION:
This is an 83-year-old patient who mainly speaks South Korean with PMH of GERD, CAD, dyslipidemia, chronic anemia, iron deficiency anemia, BPH, prediabetic, depression who presented to the ED after being sent over by his action finisher after noticing
increased creatinine at 4.8.
PLAN:
#JOSAFAT (most likely due to prerenal/hypovolemia)/CKD3a
-U/A showed UTI (leukocyte esterase, bacteria), urine culture pending
-Lactate normal
-Nephrology following
-Sodium bicarb initiated as per nephrology
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
-Bladder scan with straight cath per nephrology
-Continue colace due to backed up stool
-JOSAFAT most likely due to prerenal causes (FeNA 1.1%, urine sodium 28)
-Creatinine increased today to 4.4, BUN decreased to 94
-Continue IV fluids, Monitor I/Os
-blood cultures negative
-Video swallow study done: changed diet to minced and moist, mildly thick liquids rec; aspiration concerns
-Due to possible dialysis/kidney biopsy, discussed with daughter of quality of life aspects and option of comfort care/hospice
-Daughter decided to proceed with tunner catheter procedure. Informed IR and Nephro.
-Monitor BMP, cbc
#?Pneumonia
-CXR today showed mild interstitial airway disease at the posterior lung bases suggesting bibasilar interstitial pneumonia
-abfrebile, mild bilateral rhonchi
-WBC trended down
-has bed sore located on sacrum
-Discontinued cefepime
-Continue Unasyn for MSSA
-Discontinued vancomycin
-Monitor CBC and BMP
#Prediabetes
-HbA1c 5.6%
-Low ISS
#BPH
-Continue Flomax, finasteride
#Chronic Anemia
-HB 7.5 today
-Hold ASA
-Fecal occult blood test pending
-Continue ferrous sulfate
#Dyslipidemia
-Continue atorvastatin
#Depression
-Continue mirtazapine
DVT ppx: Hep 5000u Q8
Code: DNR
Anticipated Discharge: > 48 hours
Subjective/Interval History
-
Date of Service: October 06, 2023
Objective Data
-
Labs:
Laboratory Results
10/06/23
06:00
WBC Pending
Hgb Pending
Hct Pending
Plt Count Pending
Sodium Pending
Potassium Pending
Chloride Pending
Carbon Dioxide Pending
BUN Pending
Creatinine Pending
Glucose Pending
Calcium Pending
Vital Signs:
Vital Signs
Temp Pulse Resp BP Pulse Ox
98.0 F 68 18 134/72 95
10/06/23 03:00 10/06/23 03:00 10/06/23 03:00 10/06/23 03:00 10/06/23 03:00
I&O
10/05/23 10/06/23 10/07/23
06:59 06:59 06:59
Intake Total 800 / 800
Balance 800 / 800
Review of Systems
-
History Source: Patient
All other systems: Reviewed and negative
Physical Exam
-
General: No Apparent Distress and Appears Chronically Ill (thin)
HEENT: Normocephalic
Respiratory: Clear to Auscultation
Cardiac: Regular Rhythm and S1/S2
GI: Soft and Nondistended
Musculoskeletal: No Edema
Skin: Dry
Neuro: Awake, Alert and Oriented
Psych: Calm
[2023-10-06] MEDS: LOPRESSOR 25 MG PO ×2 (08:37→21:40)
[2023-10-06] MEDS: PROTONIX 40 MG PO (08:37)
[2023-10-06] MEDS: COLACE 100 MG PO ×2 (08:37→21:40)
[2023-10-06] MEDS: FEOSOL 325 MG PO (08:37)
[2023-10-06] MEDS: COMBIGAN EYE DROPS 1 DROP LEFT EYE ×2 (08:38→21:42)
[2023-10-06] MEDS: RESTASIS 0.05% OPHTHALMIC EMULSION 1 DROPS BOTH EYES ×2 (08:38→21:43)
[2023-10-06] MEDS: PROSCAR 5 MG PO (08:38)
[2023-10-06] MEDS: HEPARIN 5000 UNITS SC ×2 (08:39→18:04)
[2023-10-06] MEDS: STERILE WATER FOR INJECTION IV (08:39)
[2023-10-06 12:02] LABS: Erythropoietin (EPO) 9 mU/mL (4-27)
[2023-10-06 12:20] LABS: Glucose - Point of Care 93 mg/dl (70-99)
[2023-10-06 14:34] LABS: % Basophils 0.9 % (0-2); % Eosinophils 7.5 % (0-6); % Immature Granulocytes 3.7 % (0-0.5); % Lymphocytes 17.6 % (20.5-51.1); % Monocytes 8.1 % (1.7-9.3); % Neutrophils 62.2 % (42.2-75.2); Absolute Basophils 0.1 10^3/uL (0-0.2); Absolute Eosinophils 0.7 10^3/uL (0-0.7); Absolute Immature Granulocytes 0.3 10^3/uL (0-0.05); Absolute Lymphocytes 1.6 10^3/uL (1.2-3.4); Absolute Monocytes 0.7 10^3/uL (0.1-0.6); Absolute Neutrophils 5.5 10^3/uL (1.4-6.5); Hematocrit 24.6 % (39.0-52.0); Hemoglobin 7.8 g/dL (13.0-18.0); Mean Corp Hgb Conc. 31.7 g/dL (33.0-37.0); Mean Corpuscular Hgb 28.7 pg (27.0-31.0); Mean Corpuscular Volume 90.4 fL (80.0-94.0); Mean Platelet Volume 9.5 fL (7.4-10.4); Nucleated Red Blood Cells % 0 % (-); Platelet Count 277 10^3/uL (130-400); Red Blood Cell Count 2.72 10^6/uL (4.70-6.10); Red Cell Dist. Width 12.9 % (11.5-14.5); White Blood Cell Count 8.9 10^3/uL (4.8-10.8)
[2023-10-06 15:08] LABS: Blood Urea Nitrogen 90 mg/dl (9-20); Calcium 8.1 mg/dl (8.4-10.2); Carbon Dioxide 24 mmol/L (22-30); Chloride 110 mmol/L (98-107); Estimated Creatinine Clearance 10 ml/min; Glucose 84 mg/dl (70-99); Potassium 4.2 mmol/L (3.5-5.1); Sodium 140 mmol/L (135-145); eGFR 12.54
[2023-10-06 15:56] LABS: Hepatitis B Surface Antigen Negative (Negative)
--- NOTE | 2023-10-06 15:59 | CM ---
Addendum entered by Isabella Martinez 10/06/23 16:01:
Patient long term care resident at [facility].
Plan: back tp [facility] when stable.
Original Note:
Patient off the floor in IR.
[2023-10-06 16:14] LABS: Hepatitis B Core Ab, Total Negative (Negative); Hepatitis B Surface Antibody Negative; Hepatitis C Antibody Negative (Negative)
[2023-10-06 17:25] LABS: Glucose - Point of Care 73 mg/dl (70-99)
--- NOTE | 2023-10-06 17:42 | W.PN.NEPH.PH ---
Today's Communication / Plan
-
HD tomorrow
Assessment/Plan
-
Assessment:
JOSAFAT (creatinine was 1.1 09/27/22)
Hypotension
Probable pneumonia
Leukocytosis
Metabolic acidosis
Hyperlipidemia
Anemia
Falls
Staph UTI
Plan:
HD tomorrow
follow hgb
ABIGAIL on HD
-
-
Date of Service: October 06, 2023
CC / HPI / ROS
-
Chief Complaint:
Acute kidney and
History of Present Illness:
Hemodynamically stable
Staph UTI now on Unasyn
Creatinine stable at 4.4
K normal
Hgb low 7.8 stable
Review of Systems:
No significant postvoid on bladder scan
No fevers
No shortness of breath or chest pain
Labs
-
Labs:
WBC 8.9 10^3/uL (4.8-10.8) 10/06/23 14:27
RBC 2.72 10^6/uL (4.70-6.10) L 10/06/23 14:27
Hgb 7.8 g/dL (13.0-18.0) L 10/06/23 14:27
Hct 24.6 % (39.0-52.0) L 10/06/23 14:27
Plt Count 277 10^3/uL (130-400) 10/06/23 14:27
Sodium 140 mmol/L (135-145) 10/06/23 14:27
Potassium 4.2 mmol/L (3.5-5.1) 10/06/23 14:27
Chloride 110 mmol/L (98-107) H 10/06/23 14:27
Carbon Dioxide 24 mmol/L (22-30) 10/06/23 14:27
BUN 90 mg/dl (9-20) H 10/06/23 14:27
Creatinine 4.4 mg/dL (0.7-1.3) H* 10/06/23 14:27
eGFR 12.54 10/06/23 14:27
Glucose 84 mg/dl (70-99) 10/06/23 14:27
Calcium 8.1 mg/dl (8.4-10.2) L 10/06/23 14:27
Phosphorus 3.3 mg/dl (2.5-4.5) 10/05/23 05:32
Rzj-N-Itdgmrbdpwi Pept 7990 pg/ml 10/05/23 05:32
Physical Exam
-
Vital Signs:
Vital Signs
Temp Pulse Resp BP Pulse Ox
97.7 F 76 18 162/91 96
10/06/23 17:30 10/06/23 17:30 10/06/23 17:30 10/06/23 17:30 10/06/23 17:30
Cardiovascular:: Regular rate and rhythm
Respiratory:: Bilateral: Coarse
Lung Excursion:: Normal
Abdomen:: Nontender and Soft
Bowel Sounds:: Normal
Extremity Edema:: None: Bilateral:
[2023-10-06] MEDS: UNASYN IV (18:01)
[2023-10-06] MEDS: LIPITOR 40 MG PO (18:01)
[2023-10-06] MEDS: FLOMAX 0.400000000000000022 MG PO (18:01)
[2023-10-06 21:16] LABS: ANA, IgG Reflex to HEp-2 None Detected (None Detected)
[2023-10-06 21:35] LABS: Glucose - Point of Care 193 mg/dl (70-99)
[2023-10-06] MEDS: REMERON 7.5 MG PO (21:43)
[2023-10-06] MEDS: REFRESH CELLUVISC GEL 1 DROPS BOTH EYES (21:43)
[2023-10-07] MEDS: HEPARIN SC (01:44)
[2023-10-07 03:00] VITALS: BP 129/76
[2023-10-07 06:00] VITALS: BMI 21.2
[2023-10-07 07:00] VITALS: BP 158/82
[2023-10-07 07:27] LABS: Glucose - Point of Care 135 mg/dl (70-99)
[2023-10-07] MEDS: HEPARIN 500 UNITS IV ×2 (07:55→08:55)
[2023-10-07] MEDS: MANNITOL 12.5 GRAMS IV ×2 (08:05→09:03)
[2023-10-07 08:40] LABS: % Basophils 0.7 % (0-2); % Eosinophils 8.3 % (0-6); % Immature Granulocytes 3.1 % (0-0.5); % Lymphocytes 15.4 % (20.5-51.1); % Monocytes 9.6 % (1.7-9.3); % Neutrophils 62.9 % (42.2-75.2); Absolute Basophils 0.1 10^3/uL (0-0.2); Absolute Eosinophils 0.8 10^3/uL (0-0.7); Absolute Immature Granulocytes 0.3 10^3/uL (0-0.05); Absolute Lymphocytes 1.5 10^3/uL (1.2-3.4); Absolute Neutrophils 6.3 10^3/uL (1.4-6.5); Hematocrit 23.4 % (39.0-52.0); Hemoglobin 7.3 g/dL (13.0-18.0); Mean Corp Hgb Conc. 31.2 g/dL (33.0-37.0); Mean Corpuscular Hgb 29.2 pg (27.0-31.0); Mean Corpuscular Volume 93.6 fL (80.0-94.0); Nucleated Red Blood Cells % 0 % (-); Platelet Count 275 10^3/uL (130-400); Red Cell Dist. Width 12.9 % (11.5-14.5)
[2023-10-07] MEDS: RETACRIT 10000 UNITS IV (08:41)
--- NOTE | 2023-10-07 08:45 | PTCARENOTE ---
10/06- Patient currently receiving HD. Will administer AM medications as ordered S/P Dialysis tx. Was able to administer Heparin SC and Eye drops as ordered at this time.
[2023-10-07] MEDS: HEPARIN 5000 UNITS SC ×2 (08:49→17:05)
[2023-10-07] MEDS: COMBIGAN EYE DROPS 1 DROP LEFT EYE ×2 (08:50→19:55)
[2023-10-07 09:09] LABS: Blood Urea Nitrogen 86 mg/dl (9-20); Calcium 8.2 mg/dl (8.4-10.2); Carbon Dioxide 23 mmol/L (22-30); Chloride 112 mmol/L (98-107); Estimated Creatinine Clearance 11 ml/min; Glucose 123 mg/dl (70-99); Sodium 143 mmol/L (135-145); eGFR 12.89
[2023-10-07] MEDS: HEPARIN 3900 UNITS INTRACATH (10:06)
--- NOTE | 2023-10-07 10:18 | W.PN.NEPH.HD ---
Assessment
-
Seen on HD. no new complaints. VSS, access ok
HD tomorrow
Progress Note - Hemodialysis
-
Date of Service: October 07, 2023
Duration: 15 minutes and 2 hours
Potassium Bath: 3
Calcium Bath: 2.5
Opti-Dialyzer: 160
Ultrafiltration: Other (none)
Blood Flow: 250
Dialysate Flow: 600
Heparin: 500x2
EPO: [id number] units
[2023-10-07 11:00] VITALS: BP 126/67
[2023-10-07 11:06] LABS: Glucose - Point of Care 96 mg/dl (70-99)
[2023-10-07] MEDS: RESTASIS 0.05% OPHTHALMIC EMULSION 1 DROPS BOTH EYES ×2 (11:27→19:56)
[2023-10-07] MEDS: COLACE 100 MG PO ×2 (11:27→19:55)
[2023-10-07] MEDS: PROSCAR 5 MG PO (11:28)
[2023-10-07] MEDS: LOPRESSOR 25 MG PO ×2 (11:28→19:55)
[2023-10-07] MEDS: PROTONIX 40 MG PO (11:28)
[2023-10-07] MEDS: FEOSOL 325 MG PO (11:29)
[2023-10-07] MEDS: STERILE WATER FOR INJECTION IV (11:29)
--- NOTE | 2023-10-07 13:23 | W.PN.HOSP.TC ---
Today's Communication/Plan
-
hd
abx
Assessment / Plan
Assessment / Plan
IMPRESSION:
This is an 83-year-old patient who mainly speaks Citizen Of [place] with PMH of GERD, CAD, dyslipidemia, chronic anemia, iron deficiency anemia, BPH, prediabetic, depression who presented to the ED after being sent over by his case hardener after noticing
increased creatinine at 4.8.
PLAN:
#JOSAFAT (most likely due to prerenal/hypovolemia)/CKD3a
-U/A showed UTI (leukocyte esterase, bacteria), urine culture pending
-Lactate normal
-Nephrology following
-Sodium bicarb initiated as per nephrology
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
-Bladder scan with straight cath per nephrology
-Continue colace due to backed up stool
-JOSAFAT most likely due to prerenal causes (FeNA 1.1%, urine sodium 28)
-Creatinine increased today to 4.4, BUN decreased to 94
-Continue IV fluids, Monitor I/Os
-blood cultures negative
-Video swallow study done: changed diet to minced and moist, mildly thick liquids rec; aspiration concerns
-Due to possible dialysis/kidney biopsy, discussed with daughter of quality of life aspects and option of comfort care/hospice
-Daughter decided to proceed with tunner catheter procedure. Informed IR and Nephro.
-Monitor BMP, cbc
#?Pneumonia
-CXR today showed mild interstitial airway disease at the posterior lung bases suggesting bibasilar interstitial pneumonia
-abfrebile, mild bilateral rhonchi
-WBC trended down
-has bed sore located on sacrum
-Discontinued cefepime
-Continue Unasyn for MSSA
-Discontinued vancomycin
-Monitor CBC and BMP
#Prediabetes
-HbA1c 5.6%
-Low ISS
#BPH
-Continue Flomax, finasteride
#Chronic Anemia
-HB 7.5 today
-Hold ASA
-Fecal occult blood test pending
-Continue ferrous sulfate
#Dyslipidemia
-Continue atorvastatin
#Depression
-Continue mirtazapine
DVT ppx: Hep 5000u Q8
Code: DNR
Update 10/06:
# ESRD- starting HD today
# Sepsis secondary to B/L Aspiration PNA- cont Unasyn, speech therapy on board with modified diet, aspiration precautions,
# UTI- MSSA- cont unasyn
# Anemia- ABIGAIL during HD
Anticipated Discharge: > 48 hours
Subjective/Interval History
-
Date of Service: October 07, 2023
no acute events
Objective Data
-
Labs:
Laboratory Results
10/07/23
07:37
WBC 10.0
Hgb 7.3 L
Hct 23.4 L
Plt Count 275
Sodium 143
Potassium 4.0
Chloride 112 H
Carbon Dioxide 23
BUN 86 H
Creatinine 4.3 H*
Glucose 123 H
Calcium 8.2 L
Vital Signs:
Vital Signs
Temp Pulse Resp BP Pulse Ox
97.9 F 66 18 126/67 95
10/07/23 11:00 10/07/23 11:00 10/07/23 11:00 10/07/23 11:00 10/07/23 11:00
I&O
10/06/23 10/07/23 10/08/23
06:59 06:59 06:59
Intake Total 480 / 480
Balance 480 / 480
Review of Systems
-
History Source: Patient
All other systems: Reviewed and negative
Physical Exam
-
General: No Apparent Distress and Appears Chronically Ill (thin)
HEENT: Normocephalic
Respiratory: Clear to Auscultation
Cardiac: Regular Rhythm and S1/S2
GI: Soft and Nondistended
Musculoskeletal: No Edema
Skin: Dry
Neuro: Awake, Alert and Oriented
Psych: Calm
Data Reviewed
-
Diagnostic Radiology: Image personally visualized and interpreted and Report Reviewed by me
Ultrasound: Report Reviewed by me
Labs: Labs Reviewed by me
--- NOTE | 2023-10-07 13:50 | CM ---
Patient LTC resident at [facility].
Dependent, total care.
Tunneled IJ cath placed in IR yesterday.
HD initiated today.
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
Plan: back to [facility] LTC when medically stable.
[2023-10-07 15:00] VITALS: BP 136/85
[2023-10-07 16:28] LABS: Glucose - Point of Care 162 mg/dl (70-99)
[2023-10-07] MEDS: FLOMAX 0.400000000000000022 MG PO (17:06)
[2023-10-07] MEDS: LIPITOR 40 MG PO (17:06)
[2023-10-07] MEDS: UNASYN IV (17:07)
[2023-10-07 19:15] VITALS: BP 157/76
[2023-10-07] MEDS: REFRESH CELLUVISC GEL 1 DROPS BOTH EYES (21:39)
[2023-10-07] MEDS: REMERON 7.5 MG PO (21:39)
[2023-10-07 21:40] LABS: Glucose - Point of Care 103 mg/dl (70-99)
[2023-10-07 23:10] VITALS: BP 139/65
[2023-10-08] MEDS: HEPARIN SC (01:26)
[2023-10-08 03:05] VITALS: BP 144/72
[2023-10-08 06:00] VITALS: BMI 19.1
[2023-10-08 07:00] VITALS: BP 159/84
[2023-10-08 07:30] LABS: Glucose - Point of Care 105 mg/dl (70-99)
[2023-10-08] MEDS: HEPARIN 500 UNITS IV ×2 (07:50→08:50)
[2023-10-08] MEDS: MANNITOL 12.5 GRAMS IV ×2 (08:08→09:48)
[2023-10-08 08:11] LABS: Hematocrit 23.1 % (39.0-52.0); Hemoglobin 7.2 g/dL (13.0-18.0); Mean Corp Hgb Conc. 31.2 g/dL (33.0-37.0); Mean Corpuscular Hgb 29.1 pg (27.0-31.0); Mean Corpuscular Volume 93.5 fL (80.0-94.0); Mean Platelet Volume 9.5 fL (7.4-10.4); Platelet Count 253 10^3/uL (130-400); Red Blood Cell Count 2.47 10^6/uL (4.70-6.10); Red Cell Dist. Width 12.6 % (11.5-14.5); White Blood Cell Count 11.4 10^3/uL (4.8-10.8)
[2023-10-08 09:02] LABS: Blood Urea Nitrogen 46 mg/dl (9-20); Calcium 8.1 mg/dl (8.4-10.2); Carbon Dioxide 30 mmol/L (22-30); Chloride 106 mmol/L (98-107); Estimated Creatinine Clearance 13 ml/min; Glucose 94 mg/dl (70-99); Potassium 3.4 mmol/L (3.5-5.1); Sodium 137 mmol/L (135-145); eGFR 19.09
[2023-10-08 09:58] LABS: Albumin 2.84 g/dL (3.75-5.01); Alpha 1 Globulin 0.45 g/dL (0.19-0.46); Alpha 2 Globulin 0.77 g/dL (0.48-1.05); SPEP IFE Reflex Not Done
--- NOTE | 2023-10-08 10:21 | W.PN.NEPH.HD ---
Assessment
-
Seen on HD. no complaints. VSS, access ok
HD tomorrow
Progress Note - Hemodialysis
-
Date of Service: October 08, 2023
Duration: 45 minutes and 3 hours
Potassium Bath: 3
Calcium Bath: 2.5
Opti-Dialyzer: 160
Ultrafiltration: Other (none)
Blood Flow: 300
Dialysate Flow: 600
Heparin: 500x2
EPO: 0
[2023-10-08] MEDS: HEPARIN 3900 UNITS INTRACATH (10:30)
[2023-10-08 11:00] VITALS: BP 147/63
--- NOTE | 2023-10-08 12:35 | W.PN.HOSP.TC ---
Today's Communication/Plan
-
resume asa
HD today
cont abx
Assessment / Plan
Assessment / Plan
IMPRESSION:
This is an 83-year-old patient who mainly speaks Indonesian with PMH of GERD, CAD, dyslipidemia, chronic anemia, iron deficiency anemia, BPH, prediabetic, depression who presented to the ED after being sent over by his operations manager/coordinator after noticing
increased creatinine at 4.8.
PLAN:
#JOSAFAT (most likely due to prerenal/hypovolemia)/CKD3a - now ESRD on HD
-U/A showed UTI (leukocyte esterase, bacteria), urine culture pending
-Lactate normal
-Nephrology following
-Sodium bicarb initiated as per nephrology
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
-Bladder scan with straight cath per nephrology
-Continue colace due to backed up stool
-JOSAFAT most likely due to prerenal causes (FeNA 1.1%, urine sodium 28)
-Creatinine increased today to 4.4, BUN decreased to 94
-Continue IV fluids, Monitor I/Os
-blood cultures negative
-Video swallow study done: changed diet to minced and moist, mildly thick liquids rec; aspiration concerns
-Due to possible dialysis/kidney biopsy, discussed with daughter of quality of life aspects and option of comfort care/hospice
-Daughter decided to proceed with tunner catheter procedure. Informed IR and Nephro.
-Monitor BMP, cbc
#?Pneumonia
-CXR today showed mild interstitial airway disease at the posterior lung bases suggesting bibasilar interstitial pneumonia
-abfrebile, mild bilateral rhonchi
-WBC trended down
-has bed sore located on sacrum
-Discontinued cefepime
-Continue Unasyn for MSSA
-Discontinued vancomycin
-Monitor CBC and BMP
#Prediabetes
-HbA1c 5.6%
-Low ISS
#BPH
-Continue Flomax, finasteride
#Chronic Anemia
-Resume ASA and monitor
-anemia most likely 2/2 to CKD
-no obvious bleeding
-Continue ferrous sulfate
#Dyslipidemia
-Continue atorvastatin
#Depression
-Continue mirtazapine
DVT ppx: Hep 5000u Q8
Code: DNR
Update 10/06 and 10/07:
# ESRD- started HD 10/06; HD today and tomorrow
# Sepsis secondary to B/L Aspiration PNA- cont Unasyn, speech therapy on board with modified diet, aspiration precautions,
# UTI- MSSA- cont unasyn
# Anemia- ABIGAIL during HD; resume ASA - hgb stable
Anticipated Discharge: > 48 hours
Subjective/Interval History
-
Date of Service: October 08, 2023
Tolerated HD well yesterday, HD today
Objective Data
-
Labs:
Laboratory Results
10/08/23
08:04
WBC 11.4 H
Hgb 7.2 L
Hct 23.1 L
Plt Count 253
Sodium 137
Potassium 3.4 L
Chloride 106
Carbon Dioxide 30
BUN 46 H
Creatinine 3.1 H
Glucose 94
Calcium 8.1 L
Vital Signs:
Vital Signs
Temp Pulse Resp BP Pulse Ox
97.7 F 64 18 147/63 94
10/08/23 11:00 10/08/23 11:00 10/08/23 11:00 10/08/23 11:00 10/08/23 11:00
I&O
10/07/23 10/08/23 10/09/23
06:59 06:59 06:59
Intake Total 480 / 480 240 / 240
Balance 480 / 480 240 / 240
Review of Systems
-
History Source: Patient
All other systems: Reviewed and negative
Physical Exam
-
General: No Apparent Distress and Appears Chronically Ill (thin)
HEENT: Normocephalic
Respiratory: Clear to Auscultation
Cardiac: Regular Rhythm and S1/S2
GI: Soft and Nondistended
Musculoskeletal: No Edema
Skin: Dry
Neuro: Awake, Alert and Oriented
Psych: Calm
Data Reviewed
-
Diagnostic Radiology: Image personally visualized and interpreted and Report Reviewed by me
Ultrasound: Report Reviewed by me
Labs: Labs Reviewed by me
[2023-10-08 12:38] LABS: Glucose - Point of Care 98 mg/dl (70-99)
[2023-10-08] MEDS: PROTONIX 40 MG PO (12:45)
[2023-10-08] MEDS: PROSCAR 5 MG PO (12:45)
[2023-10-08] MEDS: FEOSOL 325 MG PO (12:45)
[2023-10-08] MEDS: COMBIGAN EYE DROPS 1 DROP LEFT EYE ×2 (12:45→19:50)
[2023-10-08] MEDS: RESTASIS 0.05% OPHTHALMIC EMULSION 1 DROPS BOTH EYES ×2 (12:45→19:50)
[2023-10-08] MEDS: LOPRESSOR 25 MG PO ×2 (12:46→20:42)
[2023-10-08] MEDS: HEPARIN 5000 UNITS SC ×3 (12:46→23:30)
[2023-10-08] MEDS: COLACE 100 MG PO ×2 (12:47→19:50)
[2023-10-08] MEDS: STERILE WATER FOR INJECTION IV (12:52)
--- NOTE | 2023-10-08 13:50 | CM ---
Referral sent to [facility] for SHILPI.
Patient will be new to HD.
Labs, CXR, tunneled cath information uploaded.
Plan: back to [facility] when stable.
[2023-10-08 15:28] VITALS: BP 123/71
[2023-10-08 16:31] LABS: Glucose - Point of Care 143 mg/dl (70-99)
[2023-10-08] MEDS: LIPITOR 40 MG PO (17:01)
[2023-10-08] MEDS: FLOMAX 0.400000000000000022 MG PO (17:01)
[2023-10-08] MEDS: UNASYN IV (17:03)
[2023-10-08 19:00] VITALS: BP 137/74
[2023-10-08] MEDS: REFRESH CELLUVISC GEL 1 DROPS BOTH EYES (21:37)
[2023-10-08] MEDS: REMERON 7.5 MG PO (21:38)
[2023-10-08 22:23] LABS: Myeloperoxidase Antibody 0 AU/mL (0-19); Serine Protease-3, IgG 211 AU/mL (0-19)
[2023-10-08 22:55] VITALS: BP 138/65
[2023-10-08 23:37] LABS: Glucose - Point of Care 102 mg/dl (70-99)
[2023-10-09 03:00] VITALS: BP 132/77
[2023-10-09 04:16] VITALS: BMI 18.8
[2023-10-09 07:19] LABS: Glucose - Point of Care 94 mg/dl (70-99)
[2023-10-09 07:24] LABS: Hematocrit 23.1 % (39.0-52.0); Hemoglobin 7.2 g/dL (13.0-18.0); Mean Corp Hgb Conc. 31.2 g/dL (33.0-37.0); Mean Corpuscular Hgb 28.9 pg (27.0-31.0); Mean Corpuscular Volume 92.8 fL (80.0-94.0); Mean Platelet Volume 9.7 fL (7.4-10.4); Platelet Count 233 10^3/uL (130-400); Red Blood Cell Count 2.49 10^6/uL (4.70-6.10); Red Cell Dist. Width 12.6 % (11.5-14.5); White Blood Cell Count 12.4 10^3/uL (4.8-10.8)
[2023-10-09] MEDS: HEPARIN 500 UNITS IV ×2 (07:55→08:55)
[2023-10-09 08:00] VITALS: BP 137/74
[2023-10-09 08:10] LABS: ALT (SGPT) 18 U/L (0-50); AST (SGOT) 25 U/L (17-59); Albumin 2.7 g/dl (3.5-5.0); Alkaline Phosphatase 75 U/L (38-126); Blood Urea Nitrogen 26 mg/dl (9-20); Calcium 7.8 mg/dl (8.4-10.2); Carbon Dioxide 32 mmol/L (22-30); Chloride 102 mmol/L (98-107); Estimated Creatinine Clearance 17 ml/min; Glucose 87 mg/dl (70-99); Potassium 3.8 mmol/L (3.5-5.1); Sodium 136 mmol/L (135-145); Total Bilirubin 0.5 mg/dl (0.2-1.3); Total Protein 5.6 g/dl (6.3-8.2); eGFR 25.96
[2023-10-09] MEDS: MANNITOL 12.5 GRAMS IV ×2 (08:52→09:55)
[2023-10-09] MEDS: RETACRIT 10000 UNITS IV (08:53)
--- NOTE | 2023-10-09 09:02 | W.PN.NEPH.HD ---
Assessment
-
pt seen during HD
vitals table
no UF as wt decreasing and seem euvolemic on RA
high dose ABIGAIL, adequate Fe stores
next HD Monday
HD unit placement-possibly back to [facility]
Tunneled CVC functions well
Progress Note - Hemodialysis
-
Date of Service: October 09, 2023
Duration: 30 minutes and 3 hours
Potassium Bath: 3
Calcium Bath: 2.5
Opti-Dialyzer: 160
Ultrafiltration: Other (0)
Blood Flow: 350
Dialysate Flow: 600
Heparin: yesx2
EPO: [id number]
[2023-10-09] MEDS: HEPARIN 5000 UNITS SC ×3 (10:08→23:36)
[2023-10-09] MEDS: COMBIGAN EYE DROPS 1 DROP LEFT EYE ×2 (10:08→20:30)
[2023-10-09] MEDS: HEPARIN 3900 UNITS INTRACATH (11:30)
[2023-10-09 12:37] LABS: Glucose - Point of Care 73 mg/dl (70-99)
[2023-10-09 12:43] VITALS: BP 150/76
[2023-10-09] MEDS: FEOSOL 325 MG PO (12:47)
[2023-10-09] MEDS: LOPRESSOR 25 MG PO ×2 (12:47→20:30)
[2023-10-09] MEDS: COLACE 100 MG PO ×2 (12:47→20:30)
[2023-10-09] MEDS: PROSCAR 5 MG PO (12:47)
[2023-10-09] MEDS: ASPIR LOW (ENTERIC COATED) 81 MG PO (12:47)
[2023-10-09] MEDS: PROTONIX 40 MG PO (12:47)
[2023-10-09] MEDS: RESTASIS 0.05% OPHTHALMIC EMULSION 1 DROPS BOTH EYES ×2 (12:48→20:30)
[2023-10-09] MEDS: STERILE WATER FOR INJECTION IV (12:51)
--- NOTE | 2023-10-09 13:35 | W.PN.HOSP.TC ---
Addendum entered and electronically signed by Gokul Chirinos MD 10/09/23 15:41:
Patient seen and examined
Discussed with resident
Discussed with nephrology
Impression/plan:
Acute kidney injury on CKD stage IIIb requiring initiation of renal replacement therapy with tunnel catheter placed on 10/06. Plan is to transition to outpatient dialysis regimen Monday at the nursing facility.
Sepsis secondary to bilateral aspiration pneumonia. Stable respiratory status. Continue Unasyn with plan to transition to Augmentin upon discharge to complete 7 to 10-day course of treatment. Diet has been adjusted with aspiration precautions.
UTI with MSSA, on Unasyn.
Anemia of chronic disease mild iron deficiency. Treated with ABIGAIL.
Chronic urinary retention with prior indwelling Gonzales catheter/BPH continue bladder scan monitor for retention. Bowel regimen avoiding constipation. Continue Flomax and Proscar
Chronic dysphagia. Diet has been advanced with aspiration precautions
CAD with prior stents continue aspirin, metoprolol. Prior history of severe epistaxis when Plavix had been discontinued.
Hypertension. Monitor BP avoiding hypotension.
Original Note:
Today's Communication/Plan
-
HD third session today
Continue Unasyn
Assessment / Plan
Assessment / Plan
IMPRESSION:
This is an 83-year-old patient who mainly speaks [place] with PMH of GERD, CAD, dyslipidemia, chronic anemia, iron deficiency anemia, BPH, prediabetic, depression who presented to the ED after being sent over by his civil clerk after noticing
increased creatinine at 4.8.
PLAN:
#JOSAFAT (most likely due to prerenal/hypovolemia)/CKD3a - now ESRD on HD
-U/A showed UTI (leukocyte esterase, bacteria), urine culture pending
-Lactate normal
-Nephrology following
-Sodium bicarb initiated as per nephrology
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
-Bladder scan with straight cath per nephrology
-Continue colace due to backed up stool
-JOSAFAT most likely due to prerenal causes (FeNA 1.1%, urine sodium 28)
-blood cultures negative
-Video swallow study done: changed diet to minced and moist, mildly thick liquids rec; aspiration concerns
-Due to possible dialysis/kidney biopsy, discussed with daughter of quality of life aspects and option of comfort care/hospice
-Daughter decided to proceed with tunner catheter procedure/hemodialysis
-Creatinine 2.4, BUN 26 today, on third session of dialysis
-discharge to [facility] possibly tomorrow
-Monitor BMP, cbc
#?Pneumonia
-CXR today showed mild interstitial airway disease at the posterior lung bases suggesting bibasilar interstitial pneumonia
-abfrebile, clear to auscultation
-WBC trended down
-has bed sore located on sacrum
-Discontinued cefepime, vancomycin
-Continue Unasyn for MSSA (to continue abx course after discharge for 7 days)
-Monitor CBC and BMP
#Prediabetes
-HbA1c 5.6%
-Low ISS
#BPH
-Continue Flomax, finasteride
#Chronic Anemia
-Resume ASA and monitor
-anemia most likely 2/2 to CKD
-no obvious bleeding
-Continue ferrous sulfate
#Dyslipidemia
-Continue atorvastatin
#Depression
-Continue mirtazapine
DVT ppx: Hep 5000u Q8
Code: DNR
Anticipated Discharge: 24 - 48 hours
Subjective/Interval History
-
Date of Service: October 09, 2023
Objective Data
-
Labs:
Laboratory Results
10/09/23
06:51
WBC 12.4 H
Hgb 7.2 L
Hct 23.1 L
Plt Count 233
Sodium 136
Potassium 3.8
Chloride 102
Carbon Dioxide 32 H
BUN 26 H
Creatinine 2.4 H
Glucose 87
Calcium 7.8 L
Total Bilirubin 0.5
AST 25
ALT 18
Alkaline Phosphatase 75
Vital Signs:
Vital Signs
Temp Pulse Resp BP Pulse Ox
97.8 F 70 18 150/76 96
10/09/23 12:43 10/09/23 12:43 10/09/23 12:43 10/09/23 12:43 10/09/23 12:43
I&O
10/08/23 10/09/23 10/10/23
06:59 06:59 06:59
Intake Total 240 / 240 240 / 240
Balance 240 / 240 240 / 240
Review of Systems
-
History Source: Patient
All other systems: Reviewed and negative
Physical Exam
-
General: No Apparent Distress and Appears Chronically Ill (thin)
HEENT: Normocephalic
Respiratory: Clear to Auscultation
Cardiac: Regular Rhythm and S1/S2
GI: Soft and Nondistended
Musculoskeletal: No Edema
Skin: Dry
Neuro: Awake, Alert and Oriented
Psych: Calm
--- NOTE | 2023-10-09 14:58 | PN.CDI ---
Addendum entered and electronically signed by Dalia Penn, Resident, 10/10/23 14:52:
Patient appears cachetic/BMI is 19.4
Original Note:
CDI
- -
CDI:
Physician Documentation Request
Admit Date: 10/03/23 17:30
Dear Doctor Candis,
Please review the following and provide your response in the progress notes.
Clinical Indicators:
Height: 5 feet 6 in
Weight:116 b 2.9 oz
BMI:18.8
Other Clinical Notes: Documented in the record , ' (Appears thin)..'
If possible, please provide an associated diagnosis related to the abnormal BMI, such as:
BMI < or = to 19
Underweight
Cachectic
- Other
Use of terms such as suspected, likely, concern for, or probable (associated with a specific diagnosis that is being evaluated, monitored, or treated as if it exists) are acceptable and can be coded in the inpatient setting, when documented at the
time of discharge.
Thank you,
Val Tucker RN
CDI Specialist
[facility] [employer]
Please use your independent medical judgment in providing your response.
--- NOTE | 2023-10-09 15:01 | PN.CDI ---
CDI
- -
CDI:
Physician Documentation Request
Admit Date: 10/03/23 17:30
Dear Doctor Candis,
Please review the following and provide your response in the progress notes.
Clinical Indicators:
Pt admitted with JOSAFAT now ESRD on HD /UTI/Pneumonia
Progress note 10/05, ' Sepsis secondary to B/L Aspiration PNA- cont Unasyn, speech therapy on board with modified diet, aspiration precautions...'
Progress notes 10/06 &10/07, ' Sepsis secondary to B/L Aspiration PNA- cont Unasyn, speech therapy on board with modified diet, aspiration precautions...'
On admission WBC 21.0, Tmax 100.2, RR 28
Please clarify the following:
__Sepsis _ was present on admission
__Sepsis _ was not present on admission
Unable to determine
Use of terms such as suspected, likely, concern for, or probable (associated with a specific diagnosis that is being evaluated, monitored, or treated as if it exists) are acceptable and can be coded in the inpatient setting, when documented at the
time of discharge.
Thank you,
Val Tucker RN
CDI Specialist
[facility]
Please use your independent medical judgment in providing your response.
[2023-10-09 16:05] VITALS: BP 160/79
[2023-10-09 16:10] VITALS: BMI 18.8
[2023-10-09] MEDS: UNASYN IV (17:20)
[2023-10-09] MEDS: LIPITOR 40 MG PO (17:21)
[2023-10-09] MEDS: FLOMAX 0.400000000000000022 MG PO (17:21)
[2023-10-09 17:39] LABS: Glucose - Point of Care 94 mg/dl (70-99)
[2023-10-09 19:34] VITALS: BP 147/87
[2023-10-09] MEDS: REMERON 7.5 MG PO (22:04)
[2023-10-09] MEDS: REFRESH CELLUVISC GEL 1 DROPS BOTH EYES (22:04)
[2023-10-09 22:11] LABS: Glucose - Point of Care 132 mg/dl (70-99)
[2023-10-09 23:00] VITALS: BP 124/61
[2023-10-10 03:00] VITALS: BP 153/79
[2023-10-10 05:23] VITALS: BMI 19.4
[2023-10-10 05:54] LABS: % Basophils 0.6 % (0-2); % Eosinophils 5.8 % (0-6); % Immature Granulocytes 3.2 % (0-0.5); % Lymphocytes 16.1 % (20.5-51.1); % Monocytes 8.3 % (1.7-9.3); Absolute Basophils 0.1 10^3/uL (0-0.2); Absolute Eosinophils 0.8 10^3/uL (0-0.7); Absolute Immature Granulocytes 0.5 10^3/uL (0-0.05); Absolute Lymphocytes 2.3 10^3/uL (1.2-3.4); Absolute Monocytes 1.2 10^3/uL (0.1-0.6); Absolute Neutrophils 9.2 10^3/uL (1.4-6.5); Hematocrit 23.6 % (39.0-52.0); Hemoglobin 7.5 g/dL (13.0-18.0); Mean Corp Hgb Conc. 31.8 g/dL (33.0-37.0); Mean Corpuscular Hgb 29.1 pg (27.0-31.0); Mean Corpuscular Volume 91.5 fL (80.0-94.0); Mean Platelet Volume 9.7 fL (7.4-10.4); Nucleated Red Blood Cells % 0.1 % (-); Platelet Count 201 10^3/uL (130-400); Red Blood Cell Count 2.58 10^6/uL (4.70-6.10); Red Cell Dist. Width 12.6 % (11.5-14.5)
[2023-10-10 06:23] LABS: Blood Urea Nitrogen 19 mg/dl (9-20); Calcium 7.8 mg/dl (8.4-10.2); Carbon Dioxide 31 mmol/L (22-30); Chloride 99 mmol/L (98-107); Estimated Creatinine Clearance 22 ml/min; Glucose 89 mg/dl (70-99); Potassium 3.8 mmol/L (3.5-5.1); Sodium 134 mmol/L (135-145); eGFR 34.35
[2023-10-10 07:49] LABS: Glucose - Point of Care 101 mg/dl (70-99)
[2023-10-10 07:55] VITALS: BP 162/93
[2023-10-10] MEDS: PROTONIX 40 MG PO (07:59)
[2023-10-10] MEDS: PROSCAR 5 MG PO (08:00)
[2023-10-10] MEDS: FEOSOL 325 MG PO (08:00)
[2023-10-10] MEDS: ASPIR LOW (ENTERIC COATED) 81 MG PO (08:00)
[2023-10-10] MEDS: HEPARIN 5000 UNITS SC ×2 (08:00→15:56)
[2023-10-10] MEDS: RESTASIS 0.05% OPHTHALMIC EMULSION 1 DROPS BOTH EYES ×2 (08:00→19:56)
[2023-10-10] MEDS: COLACE 100 MG PO ×2 (08:00→19:55)
[2023-10-10] MEDS: COMBIGAN EYE DROPS 1 DROP LEFT EYE ×2 (08:00→19:56)
--- NOTE | 2023-10-10 08:39 | W.PN.HOSP.TC ---
Today's Communication/Plan
-
Discharge pending to [facility] with hemodialysis
Transition to Augmentin PO upon discharge
Assessment / Plan
Assessment / Plan
IMPRESSION:
This is an 83-year-old patient who mainly speaks Lithuanian with PMH of GERD, CAD, dyslipidemia, chronic anemia, iron deficiency anemia, BPH, prediabetic, depression who presented to the ED after being sent over by his solar project coordination specialist after noticing
increased creatinine at 4.8.
PLAN:
#JOSAFAT (most likely due to prerenal/hypovolemia)/CKD3a - now ESRD on HD
-U/A showed UTI (leukocyte esterase, bacteria), urine culture pending
-Lactate normal
-Nephrology following
-Sodium bicarb initiated as per nephrology
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
-Bladder scan with straight cath per nephrology
-Continue colace due to backed up stool
-JOSAFAT most likely due to prerenal causes (FeNA 1.1%, urine sodium 28)
-blood cultures negative
-Video swallow study done: changed diet to minced and moist, mildly thick liquids rec; aspiration concerns
-Due to possible dialysis/kidney biopsy, discussed with daughter of quality of life aspects and option of comfort care/hospice
-Daughter decided to proceed with tunner catheter procedure/hemodialysis
-Creatinine 2.4, BUN 26 today
-discharge pending to [facility] with hemodialysis
#Sepsis secondary to B/L Pneumonia
-initally presented to ED with signs of sepsis
-CXR today showed mild interstitial airway disease at the posterior lung bases suggesting bibasilar interstitial pneumonia
-abfrebile, clear to auscultation
-WBC trended down
-has bed sore located on sacrum
-Discontinued cefepime, vancomycin
-Continue Unasyn for MSSA
-Transition to Augmentin upon discharge today (to continue for 2 more days)
#Prediabetes
-HbA1c 5.6%
-Low ISS
#BPH
-Continue Flomax, finasteride
#Chronic Anemia
-Resume ASA and monitor
-anemia most likely 2/2 to CKD
-no obvious bleeding
-Continue ferrous sulfate
#Dyslipidemia
-Continue atorvastatin
#Depression
-Continue mirtazapine
DVT ppx: Hep 5000u Q8
Code: DNR
Anticipated Discharge: Within 24 hours
Subjective/Interval History
-
Date of Service: October 10, 2023
Objective Data
-
Labs:
Laboratory Results
10/10/23
05:14
WBC 14.0 H
Hgb 7.5 L
Hct 23.6 L
Plt Count 201
Sodium 134 L
Potassium 3.8
Chloride 99
Carbon Dioxide 31 H
BUN 19
Creatinine 1.9 H
Glucose 89
Calcium 7.8 L
Vital Signs:
Vital Signs
Temp Pulse Resp BP Pulse Ox
98.3 F 79 14 162/93 93
10/10/23 07:55 10/10/23 07:55 10/10/23 07:55 10/10/23 07:55 10/10/23 07:55
I&O
10/09/23 10/10/23 10/11/23
06:59 06:59 06:59
Intake Total 240 / 240
Balance 240 / 240
Review of Systems
-
History Source: Patient
All other systems: Reviewed and negative
Physical Exam
-
General: No Apparent Distress
HEENT: Normocephalic
Respiratory: Clear to Auscultation
Cardiac: Regular Rhythm and S1/S2
GI: Soft and Nondistended
Musculoskeletal: No Edema
Skin: Dry
Neuro: Awake, Alert and Oriented
Psych: Calm
--- NOTE | 2023-10-10 08:40 | W.DCSUMMARY ---
Addendum entered and electronically signed by Resident Diego, 10/11/23 11:55:
Discharge was delayed yesterday, patient to be discharged today to [facility] after hemodialysis.
Original Note:
Documented by User: Resident Diego, 10/10/23 12:09
Discharge Summary
Discharge Data
Date of Admission: 10/03/23
Date of Discharge: 10/10/23
-
Pending Results: No
Hospital Course
This is an 83-year-old patient who mainly speaks Taiwanese with PMH of GERD, CAD, dyslipidemia, chronic anemia, iron deficiency anemia, BPH, prediabetic, depression who presented to the ED after being sent over by his pipelines supervisor after noticing
increased creatinine at 4.8. His urine studies, renal U/S, and IV fluids with bicarbonate were initiated. Nephrology was consulted. His CXR showed mild interstitial airway disease at the posterior lung bases suggesting bibasilar interstitial
pneumonia. Empiric antibiotics were started, IV Unasyn and IV vancomycin. His renal U/S showed Multicystic kidneys with increased renal cortical echogenicity. Bladder scans with straight catheter was started. His JOSAFAT was most likely due to prerenal
causes (FeNA 1.1%, urine sodium 28). Speech evaluation and video swallow study was due to aspiration precautions and diet was changed to moist and minced. For his chronic anemia, IV iron was started and aspirin was held. Creatinine fluctuated from
4.8 to 4 to 4.4. Due to possible dialysis/kidney biopsy, discussed with daughter of quality of life aspects and option of comfort care/hospice. Daughter decided to proceed with tunnel catheter procedure and hemodialysis. WBC has trended down.
Hemodialysis initiated. 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 Patient improving clinically
regarding his pneumonia. He is to be discharged back to [facility] on dialysis for outpatient regimen of Monday, Monday, and Monday. He will also be discharged with antibiotic course for 2 more days of Augmentin for his pneumonia.
Discharge Plan
-
Patient Disposition: Shelter/SNF
Discharge Diagnosis/Procedures: JOSAFAT on hemodialysis/UTI/Anemia of Chronic Disease
Diet: Low Sodium
Activity: As tolerated
Referrals:
Suhas Pitts MD [Family Provider] -
Prescriptions:
New
amoxicillin-pot clavulanate [Augmentin] 500-125 mg tablet
1 tab PO Q12H 2 Days Qty: 4 0RF
Continued
atorvastatin [Lipitor] 40 mg Tablet
40 mg PO QPM
tamsulosin [Flomax] 0.4 mg Capsule
0.4 mg PO QPM
esomeprazole magnesium 40 mg Capsule,Delayed Release(Dr/Ec)
40 mg PO DAILY
finasteride 5 mg Tablet
5 mg PO DAILY
metoprolol tartrate 25 mg Tablet
25 mg PO BID
mirtazapine 15 mg Tablet
7.5 mg PO HS
acetaminophen [Tylenol] 325 mg Tablet
650 mg PO Q6HPRN PRN (Reason: mild pain)
acetaminophen [Tylenol] 325 mg Tablet
650 mg PO Q4HPRN PRN (Reason: fever)
aspirin 81 mg Tablet,Delayed Release (Dr/Ec)
81 mg PO DAILY
erythromycin 5 mg/gram (0.5 %) Ointment
0.25 inch LEFT EYE BID
ferrous sulfate 325 mg (65 mg iron) Tablet
325 mg PO BID
fluticasone propionate 50 mcg/actuation [place],Suspension
2 spray INTRANASAL DAILY
cyclosporine [Restasis] 0.05 % Dropperette
1 drp BOTH EYES Q12H
carboxymethylcell-hypromellose 0.25-0.3 % Drops, Liquid Gel
1 drp BOTH EYES HS
brimonidine-timolol [Combigan] 0.2-0.5 % Drops
1 drp LEFT EYE BID
Discharge Orders:
Discharge Patient (As Directed); Ordered 10/10/23
Ordered By: Dalia Penn
Discharge Date and Time
Print Language: [place] CITIZ[place]

Documented by User: Gokul Chirinos MD 10/10/23 14:45
Discharge Summary
Discharge Data
Date of Admission: 10/03/23
Date of Discharge: 10/10/23
Discharge Plan
-
Patient Disposition: Shelter/SNF
Discharge Diagnosis/Procedures: JOSAFAT on hemodialysis/UTI/Anemia of Chronic Disease
Diet: Low Sodium
Activity: As tolerated
Referrals:
Suhas Pitts MD [Family Provider] -
Prescriptions:
New
amoxicillin-pot clavulanate [Augmentin] 500-125 mg tablet
1 tab PO Q12H 2 Days Qty: 4 0RF
Continued
atorvastatin [Lipitor] 40 mg Tablet
40 mg PO QPM
tamsulosin [Flomax] 0.4 mg Capsule
0.4 mg PO QPM
esomeprazole magnesium 40 mg Capsule,Delayed Release(Dr/Ec)
40 mg PO DAILY
finasteride 5 mg Tablet
5 mg PO DAILY
metoprolol tartrate 25 mg Tablet
25 mg PO BID
mirtazapine 15 mg Tablet
7.5 mg PO HS
acetaminophen [Tylenol] 325 mg Tablet
650 mg PO Q6HPRN PRN (Reason: mild pain)
acetaminophen [Tylenol] 325 mg Tablet
650 mg PO Q4HPRN PRN (Reason: fever)
aspirin 81 mg Tablet,Delayed Release (Dr/Ec)
81 mg PO DAILY
erythromycin 5 mg/gram (0.5 %) Ointment
0.25 inch LEFT EYE BID
ferrous sulfate 325 mg (65 mg iron) Tablet
325 mg PO BID
fluticasone propionate 50 mcg/actuation [place],Suspension
2 spray INTRANASAL DAILY
cyclosporine [Restasis] 0.05 % Dropperette
1 drp BOTH EYES Q12H
carboxymethylcell-hypromellose 0.25-0.3 % Drops, Liquid Gel
1 drp BOTH EYES HS
brimonidine-timolol [Combigan] 0.2-0.5 % Drops
1 drp LEFT EYE BID
Discharge Orders:
Discharge Patient (As Directed); Ordered 10/10/23
Ordered By: Dalia Penn
Discharge Date and Time
Print Language: [place] CITIZ[place]
--- NOTE | 2023-10-10 08:40 | W.DS.TRANS ---
DC Summary - [facility] [employer]
-
Discharge Instructions:
Instructions:
Stand-Alone Forms:
Changes to Home Medications: Yes
Discharge Medications:
DC Medications w/original date entered in [employer]
atorvastatin 40 mg tablet (Lipitor) 40 mg PO QPM High cholesterol 09/06/22
esomeprazole magnesium 40 mg capsule,delayed release 40 mg PO DAILY Gastrointestinal issue 09/06/22
finasteride 5 mg tablet 5 mg PO DAILY prostate issue 09/06/22
metoprolol tartrate 25 mg tablet 25 mg PO BID Blood pressure 09/06/22
tamsulosin 0.4 mg capsule (Flomax) 0.4 mg PO QPM Urinary issue 09/06/22
acetaminophen 325 mg tablet (Tylenol) 650 mg PO Q4HPRN PRN fever 10/03/23
acetaminophen 325 mg tablet (Tylenol) 650 mg PO Q6HPRN PRN mild pain 10/03/23
aspirin 81 mg tablet,delayed release 81 mg PO DAILY Blood Clot Prevention/Tx 10/03/23
brimonidine 0.2 %-timolol 0.5 % eye drops (Combigan) 1 drp LEFT EYE BID Eye Condition 10/03/23
carboxymethylcellulose sod-hypromell 0.25 %-0.3 % eye liquid gel drops 1 drp BOTH EYES HS Eye Condition 10/03/23
cyclosporine 0.05 % eye drops in a dropperette (Restasis) 1 drp BOTH EYES Q12H Eye Condition 10/03/23
erythromycin 5 mg/gram (0.5 %) eye ointment 0.25 inch LEFT EYE BID Eye Condition 10/03/23
ferrous sulfate 325 mg (65 mg iron) tablet 325 mg PO BID Supplement 10/03/23
fluticasone propionate 50 mcg/actuation nasal spray,suspension 2 spray intranasal DAILY Congestion 10/03/23
mirtazapine 15 mg tablet 7.5 mg PO HS Mental Health 10/03/23
Home Medication Changes
Augmentin 500mg PO BID through 10/12/23
Pending Results: No
[2023-10-10] MEDS: LOPRESSOR 25 MG PO ×2 (09:34→19:55)
--- NOTE | 2023-10-10 10:13 | W.PN.NEPH.PH ---
Addendum entered and electronically signed by Radha Givens MD 10/10/23 10:36:
plan back to [facility] with HD when arrangements done
abx per primary
Original Note:
Today's Communication / Plan
-
HD tomorrow
Assessment/Plan
-
Assessment:
JOSAFAT (creatinine was 1.1 09/27/22)
Hypotension
Probable pneumonia
Leukocytosis
Metabolic acidosis
Hyperlipidemia
Anemia
Falls
Staph UTI
Plan:
JOSAFAT-UA with UTI, renal US MRD changes
PR3 high suspicion of ANCA GN but given his advanced age and [place] resident, bedbound status unlikely he will be candidate for IS therapy
d/w daughter on phone in detail and she understands agree to cont only HD at this time
HD tomorrow
follow hgb, adequate fe stores, prn transfusion
ABIGAIL on HD
-
-
Date of Service: October 10, 2023
CC / HPI / ROS
-
Chief Complaint:
Acute kidney and
History of Present Illness:
Hemodynamically stable
Staph UTI now on Unasyn
K normal
Hgb low 7.5 stable
Review of Systems:
No fevers
No shortness of breath or chest pain
Labs
-
Labs:
WBC 14.0 10^3/uL (4.8-10.8) H 10/10/23 05:14
RBC 2.58 10^6/uL (4.70-6.10) L 10/10/23 05:14
Hgb 7.5 g/dL (13.0-18.0) L 10/10/23 05:14
Hct 23.6 % (39.0-52.0) L 10/10/23 05:14
Plt Count 201 10^3/uL (130-400) 10/10/23 05:14
Sodium 134 mmol/L (135-145) L 10/10/23 05:14
Potassium 3.8 mmol/L (3.5-5.1) 10/10/23 05:14
Chloride 99 mmol/L (98-107) 10/10/23 05:14
Carbon Dioxide 31 mmol/L (22-30) H 10/10/23 05:14
BUN 19 mg/dl (9-20) 10/10/23 05:14
Creatinine 1.9 mg/dL (0.7-1.3) H 10/10/23 05:14
eGFR 34.35 10/10/23 05:14
Glucose 89 mg/dl (70-99) 10/10/23 05:14
Calcium 7.8 mg/dl (8.4-10.2) L 10/10/23 05:14
Phosphorus 3.3 mg/dl (2.5-4.5) 10/05/23 05:32
Glz-F-Daimwfvvewb Pept 7990 pg/ml 10/05/23 05:32
Albumin 2.7 g/dl (3.5-5.0) L 10/09/23 06:51
Physical Exam
-
Vital Signs:
Vital Signs
Temp Pulse Resp BP Pulse Ox
98.3 F 79 14 162/93 93
10/10/23 07:55 10/10/23 09:34 10/10/23 07:55 10/10/23 09:34 10/10/23 07:55
Cardiovascular:: Regular rate and rhythm
Respiratory:: Bilateral: CTA (anteriorly)
Lung Excursion:: Normal
Abdomen:: Nontender and Soft
Extremity Edema:: None: Bilateral:
Gonzales Catheter: No
[2023-10-10 12:20] LABS: Glucose - Point of Care 107 mg/dl (70-99)
[2023-10-10 12:43] VITALS: BP 117/89
--- NOTE | 2023-10-10 14:46 | W.PN.UPDATE ---
Addendum entered and electronically signed by Gokul Chirinos MD 10/17/23 17:07:
Cachexia with BMI of 19.
Original Note:
Update Note
Progress Note Update
Patient seen and examined
Discussed with resident and nephrology.
Impression/plan:
Acute kidney injury.
Suspect glomerular process given abnormal urinalysis and positivity for ANCA antibodies.
? Vasculitis or isolated glomerulonephritis. Patient with no respiratory symptoms upon presentation.
Additional workup would be cumbersome given 83 years old patient with advanced dementia and poor performance status and poor tolerance to immunosuppressive treatment.
Initiated on HD.
Sepsis present on admission
Bilateral pneumonia suspect secondary to aspiration.
Current respiratory status stable
No hemoptysis or possible clinical concern for pulmonary vasculitis.
Diet has been adjusted
Antibiotics narrowed to Augmentin to complete course as outpatient.
CODE STATUS DNR
Plan of care discussed with patient's daughter over the phone on 10/08
--- NOTE | 2023-10-10 14:53 | CM ---
Patient cleared for d/c today.
Awaiting final determination from [facility] if they can accept patient.
last 2 HD flow sheets faxed to [facility].
[facility] updated.
Patient will require ambulance transport.
Await TCB from [facility].
[2023-10-10] MEDS: STERILE WATER FOR INJECTION IV (15:55)
[2023-10-10] MEDS: FLOMAX 0.400000000000000022 MG PO (17:26)
[2023-10-10] MEDS: LIPITOR 40 MG PO (17:26)
[2023-10-10 17:57] LABS: Glucose - Point of Care 105 mg/dl (70-99)
[2023-10-10] MEDS: UNASYN IV (18:13)
[2023-10-10 20:00] VITALS: BP 157/91
[2023-10-10 21:13] LABS: Glucose - Point of Care 101 mg/dl (70-99)
[2023-10-10] MEDS: REFRESH CELLUVISC GEL 1 DROPS BOTH EYES (21:34)
[2023-10-10] MEDS: REMERON 7.5 MG PO (21:35)
[2023-10-11] MEDS: HEPARIN 5000 UNITS SC ×2 (00:20→08:37)
[2023-10-11 05:50] VITALS: BMI 19.4
[2023-10-11 07:30] VITALS: BP 147/79
[2023-10-11 07:56] LABS: Hemoglobin 7.5 g/dL (13.0-18.0); Mean Corp Hgb Conc. 31.3 g/dL (33.0-37.0); Mean Corpuscular Hgb 29.3 pg (27.0-31.0); Mean Corpuscular Volume 93.8 fL (80.0-94.0); Mean Platelet Volume 9.8 fL (7.4-10.4); Platelet Count 212 10^3/uL (130-400); Red Blood Cell Count 2.56 10^6/uL (4.70-6.10); Red Cell Dist. Width 12.6 % (11.5-14.5); White Blood Cell Count 15.1 10^3/uL (4.8-10.8)
[2023-10-11 08:02] LABS: Glucose - Point of Care 76 mg/dl (70-99)
--- NOTE | 2023-10-11 08:22 | W.PN.HOSP.TC ---
Addendum entered and electronically signed by Gokul Chirinos MD 10/11/23 13:49:
Patient seen and examined
Discussed with resident and nephrology.
Impression/plan:
Acute kidney injury.
Suspect glomerular process given abnormal urinalysis and positivity for ANCA antibodies.
? Vasculitis or isolated glomerulonephritis. Patient with no respiratory symptoms upon presentation.
Additional workup would be cumbersome given 83 years old patient with advanced dementia and poor performance status and poor tolerance to immunosuppressive treatment.
Initiated on HD.
Sepsis present on admission
Bilateral pneumonia suspect secondary to aspiration.
Current respiratory status stable
No hemoptysis or possible clinical concern for pulmonary vasculitis.
Diet has been adjusted
Antibiotics narrowed to Augmentin to complete course as outpatient.
CODE STATUS DNR
Plan of care discussed with patient's daughter over the phone on 10/08
Original Note:
Today's Communication/Plan
-
Discharge planning today to [facility] on hemodialysis
Assessment / Plan
Assessment / Plan
IMPRESSION:
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
increased creatinine at 4.8.
PLAN:
#JOSAFAT (most likely due to prerenal/hypovolemia)/CKD3a - now ESRD on HD
-U/A showed UTI (leukocyte esterase, bacteria), urine culture pending
-Lactate normal
-Nephrology following
-Sodium bicarb initiated as per nephrology
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
-Bladder scan with straight cath per nephrology
-Continue colace due to backed up stool
-JOSAFAT most likely due to prerenal causes (FeNA 1.1%, urine sodium 28)
-blood cultures negative
-Video swallow study done: changed diet to minced and moist, mildly thick liquids rec; aspiration concerns
-Due to possible dialysis/kidney biopsy, discussed with daughter of quality of life aspects and option of comfort care/hospice
-Daughter decided to proceed with tunner catheter procedure/hemodialysis
-Creatinine 3 today
-discharge pending to [facility] with hemodialysis today
#Sepsis secondary to B/L Pneumonia
-initally presented to ED with signs of sepsis
-CXR today showed mild interstitial airway disease at the posterior lung bases suggesting bibasilar interstitial pneumonia
-abfrebile, clear to auscultation
-WBC trended down
-has bed sore located on sacrum
-Discontinued cefepime, vancomycin
-Continue Unasyn for MSSA
-Transition to Augmentin upon discharge today (to continue for 2 more days)
#Prediabetes
-HbA1c 5.6%
-Low ISS
#BPH
-Continue Flomax, finasteride
#Chronic Anemia
-Resume ASA and monitor
-anemia most likely 2/2 to CKD
-no obvious bleeding
-Continue ferrous sulfate
#Dyslipidemia
-Continue atorvastatin
#Depression
-Continue mirtazapine
DVT ppx: Hep 5000u Q8
Code: DNR
Anticipated Discharge: Within 24 hours
Subjective/Interval History
-
Date of Service: October 11, 2023
Objective Data
-
Labs:
Laboratory Results
10/11/23
07:24
WBC 15.1 H
Hgb 7.5 L
Hct 24.0 L
Plt Count 212
Sodium Pending
Potassium Pending
Chloride Pending
Carbon Dioxide Pending
BUN Pending
Creatinine Pending
Glucose Pending
Calcium Pending
Vital Signs:
Vital Signs
Temp Pulse Resp BP Pulse Ox
98.3 F 92 14 157/91 90
10/10/23 20:00 10/10/23 20:00 10/10/23 20:00 10/10/23 20:00 10/10/23 20:00
I&O
10/10/23 10/11/23 10/12/23
06:59 06:59 06:59
Intake Total 240 / 240 240 / 240
Balance 240 / 240 240 / 240
Review of Systems
-
History Source: Patient
All other systems: Reviewed and negative
Physical Exam
-
General: No Apparent Distress
HEENT: Normocephalic
Respiratory: Clear to Auscultation
Cardiac: Regular Rhythm and S1/S2
GI: Soft and Nondistended
Musculoskeletal: No Edema
Skin: Dry
Neuro: Awake, Alert and Oriented
Psych: Calm
[2023-10-11] MEDS: PROTONIX 40 MG PO (08:36)
[2023-10-11] MEDS: RESTASIS 0.05% OPHTHALMIC EMULSION 1 DROPS BOTH EYES (08:36)
[2023-10-11] MEDS: LOPRESSOR 25 MG PO (08:36)
[2023-10-11] MEDS: PROSCAR 5 MG PO (08:36)
[2023-10-11] MEDS: FEOSOL 325 MG PO (08:37)
[2023-10-11] MEDS: ASPIR LOW (ENTERIC COATED) 81 MG PO (08:37)
[2023-10-11] MEDS: COLACE 100 MG PO (08:37)
[2023-10-11] MEDS: COMBIGAN EYE DROPS 1 DROP LEFT EYE (08:37)
[2023-10-11 08:39] LABS: Blood Urea Nitrogen 27 mg/dl (9-20); Calcium 8.2 mg/dl (8.4-10.2); Carbon Dioxide 30 mmol/L (22-30); Chloride 100 mmol/L (98-107); Estimated Creatinine Clearance 14 ml/min; Glucose 67 mg/dl (70-99); Potassium 3.8 mmol/L (3.5-5.1); Sodium 138 mmol/L (135-145); eGFR 19.86
[2023-10-11] MEDS: HEPARIN 500 UNITS IV ×2 (08:40)
[2023-10-11] MEDS: RETACRIT 10000 UNITS IV (08:48)
--- NOTE | 2023-10-11 09:27 | W.PN.NEPH.HD ---
Assessment
-
Patient seen on dialysis
Systolic blood pressure stable at 150 at current UF
For discharge to [facility] after dialysis today
Progress Note - Hemodialysis
-
Date of Service: October 11, 2023
Duration: 30 minutes and 3 hours
Potassium Bath: 3
Calcium Bath: 2.5
Opti-Dialyzer: 160
Ultrafiltration: Other (1 kg)
Blood Flow: 400
Dialysate Flow: 600
Heparin: 500 x 2
EPO: 10,000
--- NOTE | 2023-10-11 09:36 | CM ---
Addendum entered by Isabella Martinez 10/11/23 15:30:
Patients WC left at the hospital. TC to [facility]/Mary and Nancy will picking machine operator.
Addendum entered by Isabella Martinez 10/11/23 11:11:
IMM reviewed with daughter.
Daughter updated re transport time.
Original Note:
Patient for HD this am.
Per Jessy Iraheta patient accepted for transfer back today.
Patient will require ambulance transport.
Ambulance transport forms completed.
Nancy Pointleta
Report# [phone]
[2023-10-11] MEDS: HEPARIN 3900 UNITS INTRACATH (11:02)
[2023-10-11 11:55] LABS: Glucose - Point of Care 65 mg/dl (70-99)
[2023-10-11 12:26] LABS: Glucose - Point of Care 127 mg/dl (70-99)
[2023-10-11 15:05] VITALS: BP 165/99
--- NOTE | 2023-10-11 15:34 | PTCARENOTE ---
Pt DC'd back to [facility]. Pt transported by [facility]. Pt personal wheelchair was brought to hospital- [facility] unable to transport. Mary at [facility] notified by Case Mgmt for them to come and pick it up.
== END 2023-10-11 15:28 | DRG 673 ==
LOC: 4 WEST ACU 17:30
PROVIDERS: Internal Medicine; Radiology Vascular & Interventional Radiology; Specialist; Student in an Organized Health Care Education/Training Program; ADMITTING PHYSICIAN Family Medicine; ATTENDING PHYSICIAN Internal Medicine; EMERGENCY PHYSICIAN Emergency Medicine; FAMILY PHYSICIAN Internal Medicine; OTHER PHYSICIAN Specialist
PROC: 02HV33Z Insertion of Infusion Device into Superior Vena Cava, Percutaneous Approach (ICD-10-PCS; 2023-10-06)
PROC: B5181ZA Fluoroscopy of Superior Vena Cava using Low Osmolar Contrast, Guidance (ICD-10-PCS; 2023-10-06)
PROC: 0JH63XZ Insertion of Tunneled Vascular Access Device into Chest Subcutaneous Tissue and Fascia, Percutaneous Approach (ICD-10-PCS; 2023-10-06)
PROC: 5A1D70Z Performance of Urinary Filtration, Intermittent, Less than 6 Hours Per Day (ICD-10-PCS; 2023-10-07)
DX: N17.9 Acute kidney failure, unspecified (principal); A41.9 Sepsis, unspecified organism; J69.0 Pneumonitis due to inhalation of food and vomit; K51.90 Ulcerative colitis, unspecified, without complications; E87.20 Acidosis, unspecified; N39.0 Urinary tract infection, site not specified; Q61.4 Renal dysplasia; N01.7 Rapidly progressive nephritic syndrome with diffuse crescentic glomerulonephritis; N18.6 End stage renal disease; B95.61 Methicillin susceptible Staphylococcus aureus infection as the cause of diseases classified elsewhere; F03.C0 Unspecified dementia, severe, without behavioral disturbance, psychotic disturbance, mood disturbance, and anxiety; E11.22 Type 2 diabetes mellitus with diabetic chronic kidney disease; I95.9 Hypotension, unspecified; N40.0 Benign prostatic hyperplasia without lower urinary tract symptoms; D50.9 Iron deficiency anemia, unspecified; L89.156 Pressure-induced deep tissue damage of sacral region; D63.1 Anemia in chronic kidney disease; I10 Essential (primary) hypertension; F32.A Depression, unspecified; K21.9 Gastro-esophageal reflux disease without esophagitis; E78.00 Pure hypercholesterolemia, unspecified; I25.10 Atherosclerotic heart disease of native coronary artery without angina pectoris; Z79.82 Long term (current) use of aspirin; Z87.891 Personal history of nicotine dependence; Z11.52 Encounter for screening for COVID-19; Z95.5 Presence of coronary angioplasty implant and graft; Z66 Do not resuscitate; Z74.01 Bed confinement status; Z99.2 Dependence on renal dialysis
CPT/HCPCS: 36558; 71046; 74230; 76775; 76937; 77001; 80048; 80053; 80202; 81003; 81015; 81099; 82533; 82550; 82570; 82668; 82962; 83036; 83516; 83540; 83550; 83605; 83735; 83880; 84100; 84155; 84156; 84165; 84300; 84439; 84443; 85025; 85027; 86038; 86063; 86160; 86704; 86706; 86803; 86850; 86900; 86901; 87040; 87070; 87086; 87147; 87186; 87340; 87502; 87811; 92526; 92610; 92611; 97161; 97165; 99152; 99153; C1750; G0257; Q5106

== ENCOUNTER 2024-05-22 03:11 | Inpatient (IN) | payer MEDICARE, OTHER, SELFPAY ==
[2024-05-21 23:33] VITALS: BP 142/91
[2024-05-22] VITALS (34 sets, daily range): BP systolic 83–139; BP diastolic 49–128; BMI 20.8
--- NOTE | 2024-05-22 01:01 | ED.GENMED ---
History of Present Illness
General
Chief Complaint: Fall
Source: patient
Exam Limitations: none
Time Seen by Provider: 05/22/24 00:08
History of Present Illness
History of Present Illness:
This is a 83 year old male that is brought in by ambulance with c/o right hip pain. States that he was sitting and tried to get up and fell. States that he has pain in the right hip. States that he did not hit his head or have any LOC. Denies any
fever,chills, chest pain, SOB, abd pain, nausea, vomiting, diarrhea, headache, dizziness, urinary burning.
Past History
Past History
ED Past Medical History: CAD, CHF, GERD, Hypercholesterolemia, NIDDM, Renal failure (Dialysis M-W-F) and Other (Neuropathy, Colitis, Hypotension, Overactive bladder)
ED Past Surgical History: Appendectomy
Social History
Tobacco: Non-smoker
Alcohol: None
Personal:
Living: [facility]
Review of Systems
Review of Systems
All Other Systems: ROS reviewed and negative except as documented in HPI and ROS
Constitutional: Reports no symptoms; Denies fever or chills
EENT: Reports no symptoms
Respiratory: Reports no symptoms; Denies cough or trouble breathing
Cardiac: Reports no symptoms; Denies chest pain
ABD/GI: Reports no symptoms; Denies abdominal pain, nausea, vomiting or diarrhea
: Reports no symptoms; Denies dysuria, frequency or urgency
Musculoskeletal: Reports joint pain (Right hip pain)
Skin: Reports no symptoms
Neurological: Reports no symptoms; Denies dizzy or headache
Psychiatric: Reports no symptoms
Phy Exam
General Physical Exam
General Presentation: mild distress
General age: appears stated age
General Skin: warm and dry
General Habitus: elderly
General Mental: usual mental status (Patient is able to answer questions appropriately. )
General Hydration: appears well hydrated
ENT Exam
ENT Exam: TM's normal, pharynx normal and neck supple
Eye Exam
Eye Exam: EOMI
Cardiovascular Exam
Cardiovascular Exam: regular rate/rhythm, no edema, normal peripheral pulses and other (Murmur)
Pulmonary Exam
Pulmonary Exam: no respiratory distress, chest non tender, no rhonchi, no wheezing, no cough and other (Fine crackles at bases)
Gastrointestinal Exam
Gastrointestinal Exam: normal bowel sounds, non tender, soft, no organomegaly, no pulsatile mass and non distended
Musculoskeletal Exam
Musculoskeletal Exam: no edema and other (Right hip discomfort. Leg externally rotated and shortened. Deformity noted)
Skin Exam
Skin Exam: normal color, warm/dry, no rash and no petechia
Psychiatric Exam
Psychiatric Exam: normal mood/affect
Course
Orders/Labs/Results
Orders:
Orders
05/22/24 01:00
Morphine Sulfate 2 mg IV NOW STA
Hip, Right 2-3 Views [CR Hip - RT w/wo Pel 2-3 Vw*] Urgent
Comment:
Reason For Exam: Fall, hip pain
Include a pelvis x-ray?: Yes
05/22/24 01:13
Complete Blood Count/With Diff Urgent
Comprehensive Metabolic Panel Urgent
05/22/24 02:11
Consult Orthopedic [ORTHOPEDIC CONSULT] Urgent
Consulting Provider: Musa Vickers
Was physician already notified: Yes
Abnormal Lab Results
05/22/24
01:13
WBC 12.6 H 10^3/uL
(4.8-10.8)
RBC 4.01 L 10^6/uL
(4.70-6.10)
Hgb 11.7 L g/dL
(13.0-18.0)
Hct 37.0 L %
(39.0-52.0)
MCHC 31.6 L g/dL
(33.0-37.0)
RDW 15.3 H %
(11.5-14.5)
MPV 10.6 H fL
(7.4-10.4)
Abs Immat Gran (auto) 0.1 H 10^3/uL
(0-0.05)
Absolute Neuts (auto) 9.8 H 10^3/uL
(1.4-6.5)
Absolute Monos (auto) 1.0 H 10^3/uL
(0.1-0.6)
Immature Gran % 0.6 H %
(0-0.5)
Neutrophils % 78.0 H %
(42.2-75.2)
Lymphocytes % 10.4 L %
(20.5-51.1)
Potassium 5.2 H mmol/L
(3.5-5.1)
BUN 71 H mg/dl
(9-20)
Creatinine 3.4 H mg/dL
(0.7-1.3)
Glucose 114 H mg/dl
(70-99)
Alkaline Phosphatase 178 H U/L
(38-126)
05/22/24 01:13
05/22/24 01:13
Leukocytosis, H/h slightly low. Chronic renal failure, hyperglycemia. Alk phos elevation.
Vital Signs
Initial and Last Documented VS:
Initial Vital Signs
Temp Pulse Resp BP Pulse Ox
98.2 F 85 20 142/91 98
05/21/24 23:33 05/21/24 23:33 05/21/24 23:33 05/21/24 23:33 05/21/24 23:33
Last Documented Vital Signs
Temp Pulse Resp BP Pulse Ox
98.2 F 85 20 139/128 99
05/21/24 23:33 05/21/24 23:33 05/21/24 23:33 05/22/24 01:35 05/22/24 01:46
MDM/Problems Addressed
Differential Diagnosis Includes:
Right hip fracture.
MDM/Problems Addressed:
This is a 83 year old male that comes in with /o right hip pain. States that he was going form sitting in the chair and he tried to get up and fell. States that he has right hip pain.
Will get labs, X-ray.
Chronic conditions affecting care:
CHF,
Chronic conditions affecting care: DM and Kidney disease
Acute Exacerbation and/or Progression of Chronic Illness:
NA
*Pulse Oximetry
Patient hypoxic: no
*EKG
Interpreted by ED Provider?: NA
Rate: EKG- N/A
*Computer Laboratory Technician Interpretation
Rate: Computer Laboratory Technician- N/A
*Critical Care Note
Total Time (30-74mins, 75-104mins- exclusive of procedures): Not Applicable
ED Attending Note
-
Portions of this chart may have been created with voice recognition software.� Occasional wrong word or��sound alike� substitutions may have occurred due to the inherent limitations of voice recognition software.
Discharge Plan
Departure
Patient Disposition: Admit
Date of Disposition: 05/22/24
Time of Disposition: 02:16
Admit to: Med/Surg
Presentation/result/management discussed w/ accepting MD/DO: Hospitalist
Patient with high blood pressure during this ER visit?: Yes
Condition: Good
Covid-19: Not Applicable
Discharge Problem:
Closed fracture of right hip
Prescriptions:
No Action
atorvastatin [Lipitor] 40 mg Tablet
40 mg PO QPM
tamsulosin [Flomax] 0.4 mg Capsule
0.4 mg PO QPM
esomeprazole magnesium 40 mg Capsule,Delayed Release(Dr/Ec)
40 mg PO DAILY
finasteride 5 mg Tablet
5 mg PO DAILY
metoprolol tartrate 25 mg Tablet
25 mg PO BID
mirtazapine 15 mg Tablet
7.5 mg PO HS
acetaminophen [Tylenol] 325 mg Tablet
650 mg PO Q6HPRN PRN (Reason: mild pain)
acetaminophen [Tylenol] 325 mg Tablet
650 mg PO Q4HPRN PRN (Reason: fever)
aspirin 81 mg Tablet,Delayed Release (Dr/Ec)
81 mg PO DAILY
erythromycin 5 mg/gram (0.5 %) Ointment
0.25 inch LEFT EYE BID
ferrous sulfate 325 mg (65 mg iron) Tablet
325 mg PO BID
fluticasone propionate 50 mcg/actuation Kelley,Suspension
2 spray INTRANASAL DAILY
cyclosporine [Restasis] 0.05 % Dropperette
1 drp BOTH EYES Q12H
carboxymethylcell-hypromellose 0.25-0.3 % Drops, Liquid Gel
1 drp BOTH EYES HS
latanoprost 0.005 % Drops
1 drp OPHTHALMIC (EYE) DAILY
lactulose [Enulose] 10 gram/15 mL Solution
30 g PO DAILY
Referrals:
Juan Diego López MD [Family Provider] -
Interventions
Interventions:
*Risk Screen - Suicide Last Done: 05/21/24 23:33
*General Assessment Last Done: 05/21/24 23:31
*Neglect/Abuse Screening Last Done: 05/21/24 23:33
*ED COVID-19 Vaccine History Last Done: 05/21/24 23:31
ED-Musculoskeletal Assessment Last Done: 05/21/24 23:34
ED- Neurological Assessment Last Done: 05/21/24 23:33
ED-Skin Assessment Last Done: 05/21/24 23:34
Discharge Date and Time
Print Language: KHMER
[2024-05-22 01:28] LABS: % Basophils 0.6 % (0-2); % Eosinophils 2.6 % (0-6); % Immature Granulocytes 0.6 % (0-0.5); % Lymphocytes 10.4 % (20.5-51.1); % Monocytes 7.8 % (1.7-9.3); Absolute Basophils 0.1 10^3/uL (0-0.2); Absolute Eosinophils 0.3 10^3/uL (0-0.7); Absolute Immature Granulocytes 0.1 10^3/uL (0-0.05); Absolute Lymphocytes 1.3 10^3/uL (1.2-3.4); Absolute Neutrophils 9.8 10^3/uL (1.4-6.5); Hemoglobin 11.7 g/dL (13.0-18.0); Mean Corp Hgb Conc. 31.6 g/dL (33.0-37.0); Mean Corpuscular Hgb 29.2 pg (27.0-31.0); Mean Corpuscular Volume 92.3 fL (80.0-94.0); Mean Platelet Volume 10.6 fL (7.4-10.4); Nucleated Red Blood Cells % 0 % (-); Platelet Count 283 10^3/uL (130-400); Red Blood Cell Count 4.01 10^6/uL (4.70-6.10); Red Cell Dist. Width 15.3 % (11.5-14.5); White Blood Cell Count 12.6 10^3/uL (4.8-10.8)
[2024-05-22] MEDS: MORPHINE SULFATE 2 MG IV ×2 (01:42→02:28)
[2024-05-22 01:49] LABS: ALT (SGPT) 31 U/L (0-50); AST (SGOT) 29 U/L (17-59); Albumin 4.1 g/dl (3.5-5.0); Alkaline Phosphatase 178 U/L (38-126); Blood Urea Nitrogen 71 mg/dl (9-20); Calcium 9.1 mg/dl (8.4-10.2); Carbon Dioxide 27 mmol/L (22-30); Chloride 98 mmol/L (98-107); Glucose 114 mg/dl (70-99); Potassium 5.2 mmol/L (3.5-5.1); Sodium 136 mmol/L (135-145); Total Bilirubin 0.5 mg/dl (0.2-1.3); Total Protein 7.4 g/dl (6.3-8.2); eGFR 17.09
--- NOTE | 2024-05-22 02:52 | HPS.HSE ---
Family Physician
-
Family Physician: Juan Diego López MD
Chief Complaint
-
Fall
History of Present Illness
This is a 83-year-old with past medical history of end-stage renal disease on hemodialysis Monday, CAD, CHF, GERD, presenting to the emergency department following a fall.
Patient reports that he was sitting and trying to get up from his chair when he fell. There was no loss of consciousness. He denies having any chest pain palpitations lightheadedness or dizziness. He reported having right hip pain following the
fall. Denies any other symptoms.
On arrival in the emergency department he was afebrile, hemodynamically stable and in no acute distress.
CBC was unremarkable. Chemistries with consistent with his dialysis and shows no acute indication for renal replacement. Potassium was 5.2.
Medical History
Past Medical History
Past Medical History: Reports CAD, CHF, GERD, NIDDM and Renal Failure
Additional Past Medical History:
Overactive bladder
Past Surgical History: Reports Appendectomy
Social History
Tobacco: Non-smoker
Alcohol: None
Personal:
Living: [facility]
Employment: Retired
Family History
Family History: Not pertinent
Allergies / Home Medications
Allergies reflects when Allergies were last updated in [employer].
Home Medications with original date entered in [employer]
Allergy/Medication List:
Allergies
Allergy/AdvReac Type Severity Reaction Status Date / Time
No Known Drug Allergies Allergy Unknown Verified 05/21/24 23:32
Home Medications
atorvastatin 40 mg tablet (Lipitor) 40 mg PO QPM High cholesterol 09/06/22
esomeprazole magnesium 40 mg capsule,delayed release 40 mg PO DAILY Gastrointestinal issue 09/06/22
finasteride 5 mg tablet 5 mg PO DAILY prostate issue 09/06/22
metoprolol tartrate 25 mg tablet 25 mg PO BID Blood pressure 09/06/22
tamsulosin 0.4 mg capsule (Flomax) 0.4 mg PO QPM Urinary issue 09/06/22
acetaminophen 325 mg tablet (Tylenol) 650 mg PO Q4HPRN PRN fever 10/03/23
acetaminophen 325 mg tablet (Tylenol) 650 mg PO Q6HPRN PRN mild pain 10/03/23
aspirin 81 mg tablet,delayed release 81 mg PO DAILY Blood Clot Prevention/Tx 10/03/23
carboxymethylcellulose sod-hypromell 0.25 %-0.3 % eye liquid gel drops 1 drp BOTH EYES HS Eye Condition 10/03/23
cyclosporine 0.05 % eye drops in a dropperette (Restasis) 1 drp BOTH EYES Q12H Eye Condition 10/03/23
erythromycin 5 mg/gram (0.5 %) eye ointment 0.25 inch LEFT EYE BID Eye Condition 10/03/23
ferrous sulfate 325 mg (65 mg iron) tablet 325 mg PO BID Supplement 10/03/23
fluticasone propionate 50 mcg/actuation nasal spray,suspension 2 spray intranasal DAILY Congestion 10/03/23
mirtazapine 15 mg tablet 7.5 mg PO HS Mental Health 10/03/23
lactulose 10 gram/15 mL oral solution (Enulose) 30 g PO DAILY 05/22/24
latanoprost 0.005 % eye drops 1 drp ophthalmic (eye) DAILY 05/22/24
Review of Systems
-
History Source: Patient
Constitutional: Reports No Symptoms
EENT: Reports No Symptoms
Respiratory: Reports No Symptoms
Cardiac: Reports No Symptoms
Abdomen/GI: Reports No Symptoms
: Reports No Symptoms
Musculoskeletal: Reports Joint Pain
Skin: Reports No Symptoms
Neurological: Reports No Symptoms
Endocrine: Reports No Symptoms
Hematologic/Lymphatic: Reports No Symptoms
Psych: Reports No Symptoms
Physical Exam
Vital Signs
Vital Signs
Temp Pulse Resp BP Pulse Ox
98.2 F 85 20 100/67 94
05/21/24 23:33 05/21/24 23:33 05/21/24 23:33 05/22/24 02:00 05/22/24 02:15
Physical Exam
General: Well Developed, No Apparent Distress and Comfortable
HEENT: NormoCephalic, Anicteric, Moist mucous membranes and Atraumatic
Respiratory: Clear and Other (RIGHT IJ PERMCATH)
Cardiac: S1/S2 and Regular Rhythm
Breast: Deferred by me
GI: Soft, Non Tender, Non Distended and Normal Bowel Sounds
Rectal: Deferred by Provider
Genito-urinary: Deferred by me
Musculoskeletal: No Clubbing, No Cyanosis and No Edema
Skin: Warm
Neuro: Oriented (x3) and Nonfocal/grossly intact
Hematologic/Lymphatic: No Lymphadenopathy
Psych: Calm
Laboratory Results
-
05/22/24 01:13
05/22/24 01:13
Laboratory Results
Total Bilirubin 0.5 mg/dl (0.2-1.3) 05/22/24 01:13
AST 29 U/L (17-59) 05/22/24 01:13
ALT 31 U/L (0-50) 05/22/24 01:13
Alkaline Phosphatase 178 U/L (38-126) H 05/22/24 01:13
Data Reviewed
-
Diagnostic Radiology: Image Personally Visualized and interpreted
Lab Data: Labs Reviewed by me
Old Records: Reviewed
Impression/Plan
-
IMPRESSION:
83-year-old with a right-sided closed hip fracture secondary to mechanical fall.
PLAN:
1. Hip fracture
- admit to med/surg
- hold aspirin
- npo for now except meds
- pain control and antiemetics
- dvt ppx with scd
- ortho consult
- pt ot
2. ESRD
- consult renal, gets HD M/W/F via [facility]
- npo for now
3. Hypertension
- continue metoprolol
Code status DNR
[2024-05-22] MEDS: TYLENOL 650 MG PO (05:32)
--- NOTE | 2024-05-22 05:51 | EDRN ---
pt awake at 05:40, unable to give me a number for pain scale but stated he had pain in his hip. scheduled Tylenol given 650mg
--- NOTE | 2024-05-22 07:47 | CON.MD ---
Addendum entered and electronically signed by Musa Vickers MD 05/22/24 10:56:
Dictated [id number]
Original Note:
Consultation - Medical
-
Full consult to follow
Right hip intertrochanteric fracture
Will need surgical fixation after medical optimization
Keep NPO
Consent obtained over the phone with daughter Nancy Willis.
[2024-05-22] MEDS: PROSCAR PO (08:11)
[2024-05-22] MEDS: FEOSOL PO ×2 (08:11→21:28)
[2024-05-22] MEDS: DUPHALAC/CHRONULAC PO (08:11)
[2024-05-22] MEDS: PROTONIX PO (08:12)
[2024-05-22] MEDS: TYLENOL PO ×4 (08:12→20:53)
[2024-05-22] MEDS: XALATAN OPHTHALMIC SOLUTION 1 DROP BOTH EYES (08:18)
[2024-05-22] MEDS: RESTASIS 0.05% OPHTHALMIC EMULSION 1 DROPS BOTH EYES ×2 (08:30→22:10)
[2024-05-22] MEDS: LR 1000 IV ×2 (08:32→20:53)
--- NOTE | 2024-05-22 08:40 | W.CON.NEPH ---
Consultation
-
Date/Time Consultation Requested: 05/22/2024 7 AM
Date/Time Consultation Performed: 05/22/2024 8:40 AM
Requesting Provider: Dr. Marquez
Performing Provider: Dr. Agarwal
Reason for Consultation: ESRD
Medical History
-
Chief Complaint: Acute kidney injury
History of Present Illness:
This is AN 83-year-old Sierra Leonean-speaking gentleman who currently resides at [facility]. Prior to living at [facility] he had living at home in [facility] without issues. He had a primary care physician who had seen approximately
every other month but got lower to every 6 months. They state that they were never told of any abnormalities with his renal function. The only abnormality is a new about on his blood work was anemia. Ultimately, he ended up at [facility] for
rehabilitation and he has not been there almost a year. Yesterday [facility] a fall at the [facility] and was brought to the emergency room. He was noted to have a right hip fracture. He will need to be optimized for surgery. We are asked to
assist with management of his dialysis.
He is on Flomax for BPH, Lipitor for hyperlipidemia, metoprolol for hypertension. These issues have been otherwise fairly stable.
Past Medical History
Glucose intolerance, anemia, depression, hyperlipidemia, hypertension, GERD, ulcerative colitis, CKD unknown stage, overactive bladder, urogenital implants
Social History
Tobacco: Former Smoker
Alcohol: None
Family History
No known CKD
Allergies / Home Medications
Allergy/AdvReac Type Severity Reaction Status Date / Time
No Known Drug Allergies Allergy Unknown Verified 05/21/24 23:32
�Medication �Instructions �Recorded �Confirmed �Type
atorvastatin 40 mg tablet (Lipitor) 40 mg PO QPM High cholesterol 09/06/22 05/22/24 History
esomeprazole magnesium 40 mg 40 mg PO DAILY Gastrointestinal 09/06/22 05/22/24 History
capsule,delayed release issue
finasteride 5 mg tablet 5 mg PO DAILY prostate issue 09/06/22 05/22/24 History
metoprolol tartrate 25 mg tablet 25 mg PO BID Blood pressure 09/06/22 05/22/24 History
tamsulosin 0.4 mg capsule (Flomax) 0.4 mg PO QPM Urinary issue 09/06/22 05/22/24 History
acetaminophen 325 mg tablet 650 mg PO Q4HPRN PRN fever 10/03/23 05/22/24 History
(Tylenol)
acetaminophen 325 mg tablet 650 mg PO Q6HPRN PRN mild pain 10/03/23 05/22/24 History
(Tylenol)
aspirin 81 mg tablet,delayed 81 mg PO DAILY Blood Clot 10/03/23 05/22/24 History
release Prevention/Tx
carboxymethylcellulose 1 drp BOTH EYES HS Eye Condition 10/03/23 05/22/24 History
sod-hypromell 0.25 %-0.3 % eye
liquid gel drops
cyclosporine 0.05 % eye drops in a 1 drp BOTH EYES Q12H Eye Condition 10/03/23 05/22/24 History
dropperette (Restasis)
erythromycin 5 mg/gram (0.5 %) eye 0.25 inch LEFT EYE BID Eye 10/03/23 05/22/24 History
ointment Condition
ferrous sulfate 325 mg (65 mg 325 mg PO BID Supplement 10/03/23 05/22/24 History
iron) tablet
fluticasone propionate 50 2 spray intranasal DAILY Congestion 10/03/23 05/22/24 History
mcg/actuation nasal
spray,suspension
mirtazapine 15 mg tablet 7.5 mg PO HS Mental Health 10/03/23 05/22/24 History
lactulose 10 gram/15 mL oral 30 g PO DAILY 05/22/24 05/22/24 History
solution (Enulose)
latanoprost 0.005 % eye drops 1 drp ophthalmic (eye) DAILY 05/22/24 05/22/24 History
Review of Systems
-
Right hip pain
All other systems: Negative unless noted
Physical Exam
Vital Signs
Vital Signs
Temp Pulse Resp BP Pulse Ox
98.2 F 86 16 98/63 93
05/21/24 23:33 05/22/24 07:41 05/22/24 08:00 05/22/24 07:41 05/22/24 07:41
Lab Results
WBC 12.6 10^3/uL (4.8-10.8) H 05/22/24 01:13
RBC 4.01 10^6/uL (4.70-6.10) L 05/22/24 01:13
Hgb 11.7 g/dL (13.0-18.0) L 05/22/24 01:13
Hct 37.0 % (39.0-52.0) L 05/22/24 01:13
Plt Count 283 10^3/uL (130-400) 05/22/24 01:13
Sodium 136 mmol/L (135-145) 05/22/24 01:13
Potassium 5.2 mmol/L (3.5-5.1) H 05/22/24 01:13
Chloride 98 mmol/L (98-107) 05/22/24 01:13
Carbon Dioxide 27 mmol/L (22-30) 05/22/24 01:13
BUN 71 mg/dl (9-20) H 05/22/24 01:13
Creatinine 3.4 mg/dL (0.7-1.3) H 05/22/24 01:13
eGFR 17.09 05/22/24 01:13
Glucose 114 mg/dl (70-99) H 05/22/24 01:13
Calcium 9.1 mg/dl (8.4-10.2) 05/22/24 01:13
Albumin 4.1 g/dl (3.5-5.0) 05/22/24 01:13
Laboratory Tests
10/11/23
07:24
Hgb 7.5 L
Physical Exam
Patient is awake alert oriented and in no distress. Mood and affect were pleasant, insight and judgment were good. Pupils are equal round and reactive to light, extraocular movements are intact, sclera were anicteric. Hearing was normal, ears and
nose are intact. Oropharynx was clear. Neck was supple with trachea midline and no thyromegaly. Heart was regular rate and rhythm without rubs. Lower extremities without edema. Lungs were clear to auscultation bilaterally and with normal
excursion. Abdomen was soft, nontender, with normal active bowel sounds, and no hepatosplenomegaly. Skin was without rash and with normal turgor. Right hip was tender, right leg shortened externally rotated
Data Reviewed
-
Radiology: Image Personally Visualized and interpreted (X-ray hip on 05/22/2024 by my reading shows right intertrochanter fracture)
Old Records: Reviewed
Assessment/Plan
-
Assessment:
ESRD
Hypotension
Hyperlipidemia
Anemia
Falls
Right hip fracture
Plan:
He is due for dialysis today
Will limit IV fluids
May use midodrine if necessary for hypotension
Surgical repair of hip when stable
--- NOTE | 2024-05-22 11:01 | W.PN.UPDATE ---
Update Note
Progress Note Update
H&P from 251. I reviewed the patient's chart.
I personally evaluated the patient at the bedside in the ED. I have spoke with orthopedics in regards to this patient's care
83-year-old male with ESRD (HD M/W/F), HFpEF, CAD, GERD, NIDDM, OAB that presented to the hospital with fall at home, subsequent close right hip fracture. X-ray showed intertrochanteric fracture of the right proximal femur with mild increased varus
angulation. Labs with WBC 12.6, hemoglobin 11.7, potassium 5.2, creatinine 3.4, BUN 71. Otherwise AFVSS throughout ED course and into this morning.
Upon exam he does have external rotation to the right lower extremity, no significant cardiopulmonary abnormalities.
Right intertrochanteric femur fracture. Orthopedics planning for OR today. Nephrology to push regular HD session to tomorrow due to him needing OR today. Holding aspirin for now, SCDs for DVT prophylaxis. Plan for weightbearing at orthopedic
recommendations following surgery today. Continue with analgesics and antiemetics. Supportive IVF while NPO.
No contraindications to having procedure performed. Patient is low risk (RCRI score 1) for relatively low risk operative procedure.
DNR/DNI
Expected discharge >48 hours
PT to be consulted after OR
--- NOTE | 2024-05-22 17:13 | W.IMMPOSTOP ---
Surgical Immed Post Op Note
-
Primary Surgeon: Todd Allen MD
Assisting Surgeon:
Pre-op Diagnosis: right intertrochanteric hip fracture
Post-op Diagnosis: right intertrochanteric hip fracture
Procedure Performed: intramedullary fixation right intertrochanteric hip fracture
Anesthesia Type: general
Specimen / Cultures: none
Estimated Blood Loss: 50mL
Complications: none apparent
Operative Findings: right intertrochanteric hip fracture
Implants: F-Origin Gamma 3: [id number], 125 degree intramedullary nail; 10.5w197io lag screw; 45mm distal interlocking screw
Operative report dictation #[id number]
[2024-05-22] MEDS: FLOMAX PO (18:40)
[2024-05-22] MEDS: LIPITOR PO (18:40)
--- NOTE | 2024-05-22 19:21 | PTCARENOTE ---
Received Pt from ED on stretcher. Assist x3 to transfer from stretcher to bed. 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 Shortly after arriving to unit, patient was called to go to the OR. Pt off unit for
remainder of shift.
[2024-05-22] MEDS: COLACE PO (21:28)
[2024-05-22] MEDS: REFRESH CELLUVISC GEL 1 DROPS BOTH EYES (22:10)
[2024-05-22] MEDS: SENOKOT PO (22:11)
[2024-05-22] MEDS: REMERON PO (23:39)
[2024-05-22] MEDS: ANCEF 5 IV (23:53)
[2024-05-23] VITALS (7 sets, daily range): BP systolic 90–116; BP diastolic 55–63; PULSE 88–95; BMI 21.4
[2024-05-23] MEDS: TYLENOL PO ×2 (00:01→04:37)
[2024-05-23] MEDS: XALATAN OPHTHALMIC SOLUTION BOTH EYES (00:25)
[2024-05-23] MEDS: XALATAN OPHTHALMIC SOLUTION 1 DROP BOTH EYES ×2 (00:27→23:34)
[2024-05-23] MEDS: LR 1000 IV (00:33)
[2024-05-23] MEDS: ANCEF 5 IV (06:03)
--- NOTE | 2024-05-23 07:24 | W.PN.ORTHO ---
Today's Communication / Plan
-
PT/OT
Weightbearing as tolerated with walker
Aspirin for DVT prophylactics
snf facility once medically stable
Dressings in place for 7 days then incision open to air if no drainage
Skin clip removal 2 weeks postop
Follow-up with orthopedics 1 month for x-ray
Assessment
.
Distal Motor Intact: Yes
Dressing:
Clean, dry and intact.
Plan
.
Surgery / Date: R hip Gamma Nail 05/22 Alejandro
DVT Prophylaxis: Aspirin
Activity:
Out of bed.
PT/OT
Discharge Plan: SNF
Subjective
.
.:
Patient resting comfortably.
Vital Signs and Labs
.
Vital Signs and Labs:
Temp Pulse Resp BP Pulse Ox
98.1 F 85 16 100/62 95
05/23/24 03:10 05/23/24 03:10 05/23/24 03:10 05/23/24 03:10 05/23/24 03:10
[2024-05-23] MEDS: ASPIRIN 325 MG PO (07:55)
[2024-05-23] MEDS: TYLENOL 650 MG PO ×5 (07:55→23:18)
[2024-05-23] MEDS: COLACE 100 MG PO (07:55)
[2024-05-23] MEDS: RESTASIS 0.05% OPHTHALMIC EMULSION 1 DROPS BOTH EYES ×2 (07:56→21:34)
[2024-05-23] MEDS: PROTONIX 40 MG PO (07:56)
[2024-05-23] MEDS: ProAmatine 5 MG PO (07:56)
[2024-05-23] MEDS: FEOSOL 325 MG PO ×2 (07:56→21:24)
[2024-05-23] MEDS: SENOKOT 17.2 MG PO (07:56)
[2024-05-23] MEDS: DUPHALAC/CHRONULAC PO (07:56)
[2024-05-23] MEDS: PROSCAR 5 MG PO (07:56)
[2024-05-23 08:38] LABS: % Basophils 0.3 % (0-2); % Eosinophils 0.1 % (0-6); % Immature Granulocytes 0.6 % (0-0.5); % Lymphocytes 7.9 % (20.5-51.1); % Monocytes 7.3 % (1.7-9.3); % Neutrophils 83.8 % (42.2-75.2); Absolute Basophils 0.1 10^3/uL (0-0.2); Absolute Immature Granulocytes 0.1 10^3/uL (0-0.05); Absolute Lymphocytes 1.2 10^3/uL (1.2-3.4); Absolute Monocytes 1.1 10^3/uL (0.1-0.6); Absolute Neutrophils 12.1 10^3/uL (1.4-6.5); Hemoglobin 8.8 g/dL (13.0-18.0); Mean Corp Hgb Conc. 31.4 g/dL (33.0-37.0); Mean Corpuscular Hgb 28.9 pg (27.0-31.0); Mean Corpuscular Volume 91.8 fL (80.0-94.0); Mean Platelet Volume 11.2 fL (7.4-10.4); Nucleated Red Blood Cells % 0 % (-); Platelet Count 269 10^3/uL (130-400); Red Blood Cell Count 3.05 10^6/uL (4.70-6.10); Red Cell Dist. Width 15.5 % (11.5-14.5); White Blood Cell Count 14.5 10^3/uL (4.8-10.8)
[2024-05-23 08:57] LABS: INR 1.27; PT 16.4 Sec (11.4-14.6)
[2024-05-23 08:58] LABS: APTT 80.4 Sec (23.4-35.0)
[2024-05-23 09:05] LABS: Blood Urea Nitrogen 86 mg/dl (9-20); Calcium 8.4 mg/dl (8.4-10.2); Carbon Dioxide 22 mmol/L (22-30); Chloride 101 mmol/L (98-107); Estimated Creatinine Clearance 12 ml/min; Glucose 97 mg/dl (70-99); Potassium 6.1 mmol/L (3.5-5.1); Sodium 136 mmol/L (135-145); eGFR 14.06
[2024-05-23] MEDS: MANNITOL 25% 12.5 GRAMS IV ×2 (09:11→10:26)
--- NOTE | 2024-05-23 10:59 | W.PN.NEPH.HD ---
Assessment
-
Seen on HD. no complaints. VSS, access ok
Progress Note - Hemodialysis
-
Date of Service: May 23, 2024
Duration: 30 minutes and 3 hours
Potassium Bath: 2
Calcium Bath: 2.5
Opti-Dialyzer: 160
Ultrafiltration: Other (1-2kg)
Blood Flow: 400
Dialysate Flow: 600
Heparin: no
EPO: no
[2024-05-23] MEDS: ROXICODONE 5 MG PO (11:00)
[2024-05-23] MEDS: HEPARIN 3200 UNITS INTRACATH (11:00)
--- NOTE | 2024-05-23 11:36 | PN.CDI ---
CDI
- -
CDI:
Physician Documentation Request
Admit Date: 05/22/24 03:11
Dear Orthopedics,
Patient admitted for right hip fracture.
05/22 Op Note: 'intramedullary fixation right intertrochanteric hip fracture...Estimated Blood Loss: 50mL'
Laboratory Tests
05/22/24 05/23/24
01:13 07:33
Hgb 11.7 L 8.8 L D
Hct 37.0 L 28.0 L
Based on the above, could you clarify in the progress notes, the appropriate diagnosis, if significant, that supports the above abnormalities and additional evaluation, monitoring and/or treatment rendered:
Acute blood loss anemia
Hemodilution only
Acute anemia multifactorial blood loss and hemodilution
Other
Use of terms such as suspected, likely, concern for, or probable (associated with a specific diagnosis that is being evaluated, monitored, or treated as if it exists) are acceptable and can be coded in the inpatient setting, when documented at the
time of discharge.
Thank you,
Jeanie Hitchcock RN, BSN
CDI Specialist
Available via [place] text
Please use your independent medical judgment in providing your response.
--- NOTE | 2024-05-23 13:23 | W.PN.HOSP.TC ---
Today's Communication/Plan
-
Trend CBC
PT/OT for SNF
Aspirin for DVT prophylaxis
Assessment / Plan
Assessment / Plan
#Closed right intertrochanteric femur fracture
-POD #1 from surgical fixation with orthopedics, 05/[address] Vickers
-Plans for weightbearing as tolerated with walker
-Aspirin ordered for DVT prophylaxis
-Plan for dressing to be in place for 7 days
-Plan for clip removal in 2 weeks
-Repeat x-ray with Ortho in 4 weeks
-PT OT for likely SNF placement
#Postsurgical anemia
-Hemoglobin dropped to 8.8 on a.m. labs today
-No obvious sources of bleeding as of today
-Will continue to trend CBC for now
#ESRD
-Nephrology consulted, continued on dialysis every M//
#HFpEF
-Not currently on GDMT with SGLT2 or MRA
-Not currently on any standing dose of loop diuretic
-Appears euvolemic
#CAD
-No known history of coronary interventions such as PCI or CABG
-Home medications include aspirin and high intensity statin
-No signs of ACS on this hospitalization
#NIDDM
-No known microvascular complications
-Home medications do not include any standing antihyperglycemic's
-ISS with Accu-Cheks while inpatient
#GERD
-No known history of De La Rosa's esophagus or erosive disease
-Home medications include daily PPI
#OAB/BPH
-Home medications include finasteride and tamsulosin for BPH
-Not on any muscarinic's or anticholinergics for OAB per our med rec
#Dementia
-Per history, patient seems fairly well oriented and aware of his surroundings today
DVT prophylaxis: Aspirin 325 mg
Diet: Cholesterol-lowering
CODE STATUS: DNR
Anticipated Discharge: Within 24 hours
Subjective/Interval History
-
Date of Service: May 23, 2024
Objective Data
-
Labs:
Laboratory Results
05/23/24
07:33
WBC 14.5 H
Hgb 8.8 L D
Hct 28.0 L
Plt Count 269
PT 16.4 H
INR 1.27
APTT 80.4 H
Sodium 136
Potassium 6.1 H*
Chloride 101
Carbon Dioxide 22
BUN 86 H
Creatinine 4.0 H
Glucose 97
Calcium 8.4
Vital Signs:
Vital Signs
Temp Pulse Resp BP Pulse Ox
98.2 F 83 17 128/69 95
05/23/24 07:15 05/23/24 07:15 05/23/24 07:15 05/23/24 07:56 05/23/24 07:15
I&O
05/22/24 05/23/24 05/24/24
06:59 06:59 06:59
Intake Total 1220 / 1220
Output Total 725 / 725
Balance 495 / 495
--- NOTE | 2024-05-23 13:59 | CM ---
Patient seen at bedside.
IA completed. Sammarinese speaking
Dx: R hip fx
PMH: ESRD on HD, CAD, GERD, CHF
Patient fell getting up from chair
Came from [facility]
Mary liaelda updated
PCP: Juan Diego López
Pharmacy[facility]
report #: [phone]
fax #: [phone]
[2024-05-23] MEDS: FLOMAX 0.4 MG PO (17:26)
[2024-05-23] MEDS: LIPITOR 40 MG PO (17:26)
[2024-05-23] MEDS: COLACE PO ×2 (21:25→23:12)
[2024-05-23] MEDS: SENOKOT PO (21:40)
[2024-05-23] MEDS: REFRESH CELLUVISC GEL 1 DROPS BOTH EYES (23:18)
[2024-05-23] MEDS: REMERON 7.5 MG PO (23:20)
[2024-05-24 02:29] VITALS: BMI 21.4
[2024-05-24] MEDS: TYLENOL 650 MG PO ×3 (05:26→11:38)
[2024-05-24 06:00] VITALS: BMI 21.1
[2024-05-24 07:25] VITALS: BP 97/58
--- NOTE | 2024-05-24 07:32 | W.PN.ORTHO ---
Today's Communication / Plan
-
PT/OT
Weightbearing as tolerated with walker
Aspirin for DVT prophylactics
nursing home facility once medically stable
Dressings in place for 7 days then incision open to air if no drainage
Skin clip removal 2 weeks postop
Follow-up with orthopedics 1 month for x-ray
Orthopedic surgery will follow peripherally at this time; please reengage with further questions/concerns.
Assessment
.
Distal Motor Intact: Yes
Dressing:
Clean, dry and intact.
Plan
.
Surgery / Date: R hip Gamma Nail 05/22 Alejandro
Activity:
Out of bed.
PT/OT
Subjective
.
.:
Patient resting comfortably.
Vital Signs and Labs
.
Vital Signs and Labs:
Temp Pulse Resp BP Pulse Ox
98.9 F 92 18 95/57 95
05/23/24 23:20 05/23/24 23:20 05/23/24 23:20 05/23/24 23:20 05/23/24 23:20
PT 16.4 Sec (11.4-14.6) H 05/23/24 07:33
INR 1.27 05/23/24 07:33
[2024-05-24] MEDS: RESTASIS 0.05% OPHTHALMIC EMULSION 1 DROPS BOTH EYES (08:23)
[2024-05-24] MEDS: COLACE 100 MG PO (08:23)
[2024-05-24] MEDS: PROSCAR 5 MG PO (08:23)
[2024-05-24] MEDS: DUPHALAC/CHRONULAC 30 GRAMS PO (08:23)
[2024-05-24] MEDS: SENOKOT 17.2 MG PO (08:23)
[2024-05-24] MEDS: FEOSOL 325 MG PO (08:23)
[2024-05-24] MEDS: PROTONIX 40 MG PO (08:23)
[2024-05-24] MEDS: ASPIRIN 325 MG PO (08:23)
[2024-05-24 09:19] LABS: % Basophils 0.9 % (0-2); % Eosinophils 6.5 % (0-6); % Immature Granulocytes 0.6 % (0-0.5); % Lymphocytes 16.9 % (20.5-51.1); % Monocytes 14.2 % (1.7-9.3); % Neutrophils 60.9 % (42.2-75.2); Absolute Basophils 0.1 10^3/uL (0-0.2); Absolute Eosinophils 0.6 10^3/uL (0-0.7); Absolute Immature Granulocytes 0.1 10^3/uL (0-0.05); Absolute Lymphocytes 1.5 10^3/uL (1.2-3.4); Absolute Monocytes 1.2 10^3/uL (0.1-0.6); Absolute Neutrophils 5.3 10^3/uL (1.4-6.5); Hematocrit 27.3 % (39.0-52.0); Hemoglobin 8.4 g/dL (13.0-18.0); Mean Corp Hgb Conc. 30.8 g/dL (33.0-37.0); Mean Corpuscular Hgb 28.7 pg (27.0-31.0); Mean Corpuscular Volume 93.2 fL (80.0-94.0); Mean Platelet Volume 10.5 fL (7.4-10.4); Nucleated Red Blood Cells % 0 % (-); Platelet Count 239 10^3/uL (130-400); Red Blood Cell Count 2.93 10^6/uL (4.70-6.10); Red Cell Dist. Width 15.7 % (11.5-14.5); White Blood Cell Count 8.7 10^3/uL (4.8-10.8)
[2024-05-24 09:57] LABS: Blood Urea Nitrogen 42 mg/dl (9-20); Calcium 8.1 mg/dl (8.4-10.2); Carbon Dioxide 29 mmol/L (22-30); Chloride 100 mmol/L (98-107); Estimated Creatinine Clearance 16 ml/min; Glucose 83 mg/dl (70-99); Potassium 4.6 mmol/L (3.5-5.1); Sodium 138 mmol/L (135-145); eGFR 20.68
--- NOTE | 2024-05-24 10:43 | PN.CDI ---
CDI
- -
CDI:
Physician Documentation Request
Admit Date: 05/22/24 03:11
Dear Doctor Mason,
Laboratory Tests
05/22/24 05/23/24
01:13 07:33
Potassium 5.2 H 6.1 H*
Based on the above, could you clarify in the progress notes, the appropriate diagnosis, if significant, that supports the above abnormalities and additional evaluation, monitoring and/or treatment rendered:
Hyperkalemia
Abnormal lab value insignificant
Other
Use of terms such as suspected, likely, concern for, or probable (associated with a specific diagnosis that is being evaluated, monitored, or treated as if it exists) are acceptable and can be coded in the inpatient setting, when documented at the
time of discharge.
Thank you,
Jeanie Hitchcock RN, BSN
CDI Specialist
Available via [place] text
Please use your independent medical judgment in providing your response.
--- NOTE | 2024-05-24 10:48 | CM ---
Patient to have HD today at noon
Per Dr. Cuevas patient will be discharging back to [facility] after HD
Transport to be set up for 5pm.
[facility]ie liaison (cornelius Hernandez) aware.
PLAN: [facility]
report #: [phone]
fax #: [phone]
[2024-05-24 11:26] LABS: Hepatitis B Surface Antigen Negative (Negative)
[2024-05-24] MEDS: ProAmatine 5 MG PO (11:38)
--- NOTE | 2024-05-24 11:58 | W.PN.HOSP.TC ---
Addendum entered and electronically signed by Gen Cuevas DO 05/24/24 14:32:
TRACI CDI: Hyperkalemia in the context of end-stage renal disease, labs taken prior to dialysis
Original Note:
Today's Communication/Plan
-
Hemodialysis at noon
Discharge to SNF after
Prescription for 7 days of Oxy given
Assessment / Plan
Assessment / Plan
#Closed right intertrochanteric femur fracture
-POD #1 from surgical fixation with orthopedics, 05/[address] Vickers
-Plans for weightbearing as tolerated with walker
-Aspirin ordered for DVT prophylaxis
-Plan for dressing to be in place for 7 days
-Plan for clip removal in 2 weeks
-Repeat x-ray with Ortho in 4 weeks
-PT/OT for likely SNF placement
#Postsurgical anemia
-Hemoglobin dropped to 8.8 on a.m. labs today
-No obvious sources of bleeding as of today
-Will continue to trend CBC for now
#ESRD
-Nephrology consulted, continued on dialysis every M//
#HFpEF
-Not currently on GDMT with SGLT2 or MRA
-Not currently on any standing dose of loop diuretic
-Appears euvolemic
#CAD
-No known history of coronary interventions such as PCI or CABG
-Home medications include aspirin and high intensity statin
-No signs of ACS on this hospitalization
#NIDDM
-No known microvascular complications
-Home medications do not include any standing antihyperglycemic's
-ISS with Accu-Cheks while inpatient
#GERD
-No known history of De La Rosa's esophagus or erosive disease
-Home medications include daily PPI
#OAB/BPH
-Home medications include finasteride and tamsulosin for BPH
-Not on any muscarinic's or anticholinergics for OAB per our med rec
#Dementia
-Per history, patient seems fairly well oriented and aware of his surroundings today
DVT prophylaxis: Aspirin 325 mg
Diet: Cholesterol-lowering
CODE STATUS: DNR
Anticipated Discharge: Today
Subjective/Interval History
-
Date of Service: May 24, 2024
Seen and examined at the bedside. No acute events report overnight. AFVSS this
Hemoglobin stable, trend 8.8-8.4
Spoke with food services manager, will arrange for dialysis at noon prior to SNF
Denies any acute complaints. Minimal pain in the right hip
Objective Data
-
Labs:
Laboratory Results
05/24/24
08:02
WBC 8.7
Hgb 8.4 L
Hct 27.3 L
Plt Count 239
Sodium 138
Potassium 4.6
Chloride 100
Carbon Dioxide 29
BUN 42 H
Creatinine 2.9 H
Glucose 83
Calcium 8.1 L
Vital Signs:
Vital Signs
Temp Pulse Resp BP Pulse Ox
98.3 F 83 16 97/61 98
05/24/24 07:25 05/24/24 07:25 05/24/24 07:25 05/24/24 11:38 05/24/24 07:25
I&O
05/23/24 05/24/24 05/25/24
06:59 06:59 06:59
Intake Total 1220 / 1220 960 / 960
Output Total 725 / 725 0 / 0 0 / 0
Balance 495 / 495 960 / 960 0 / 0
Review of Systems
-
History Source: Patient
All other systems: Reviewed and negative
Physical Exam
-
General: Well Developed, Well Nourished, No Apparent Distress and Comfortable
HEENT: Normocephalic, Atraumatic and Moist Mucous Membranes
Respiratory: Clear to Auscultation and Non Labored Respirations
Cardiac: Regular Rhythm, S1/S2 and Murmur; Negative Rub or Gallop
GI: Soft, Nontender, Nondistended and Normal Bowel Sounds
Musculoskeletal: No Clubbing, No Cyanosis and No Edema
Skin: Warm and Dry; Negative Rash
Neuro: AO x 3 and Nonfocal/Grossly Intact
Psych: Calm
Data Reviewed
-
Labs: Labs Reviewed by me, Discussed with Physician (ortho) and Discussed with Patient
[2024-05-24] MEDS: RETACRIT 6000 UNITS IV (13:09)
[2024-05-24] MEDS: MANNITOL 25% 12.5 GRAMS IV (13:10)
--- NOTE | 2024-05-24 13:45 | W.PN.NEPH.HD ---
Assessment
-
Patient seen on dialysis
Systolic blood pressure 108 at current low volume UF
Discharge after dialysis
Progress Note - Hemodialysis
-
Date of Service: May 24, 2024
Duration: 30 minutes and 3 hours
Potassium Bath: 2
Calcium Bath: 2.5
Opti-Dialyzer: 160
Ultrafiltration: Other (0.5 kg)
Blood Flow: 400
Dialysate Flow: 600
Heparin: None
EPO: 6000
--- NOTE | 2024-05-24 14:45 | W.DCSUMMARY ---
Discharge Summary
Discharge Data
Date of Admission: 05/22/24
Date of Discharge: 05/24/24
-
Pending Results: No
Hospital Course
83-year-old male with ESRD (HD M/W/F), HFpEF, nonobstructive CAD, NIDDM, GERD, UC, celiac's, OAB, dementia that presented after having a fall out of his chair. Imaging on arrival showed right intertrochanteric femur fracture. Was seen by
orthopedics who performed ORIF on 05/22/2024. Worked with physical therapy afterwards who recommended SNF placement. Started on aspirin for DVT prophylaxis. Recommendations for dressing removal 7 days after procedure, orthopedics follow-up in
office for clip removal 2 weeks after procedure, repeat x-ray of the right hip with orthopedics in 4 weeks.
Had postoperative anemia with drop in hemoglobin. Hemoglobin remained stable in the postoperative period.
Discharge Plan
-
Patient Disposition: Skilled Nursing/SNF
Discharge Diagnosis/Procedures: Right hip Gamma Nail 05/22/24 Dr Allen
Condition: Fair
Diet: As tolerated
Activity: As tolerated
Driving Restrictions: No driving
Bathing Restrictions: OK to Shower
Blood Work: None
Others Tests: Xray in Right hip with ortho in 4 weeks
Other Services: PT
Specialty Instructions: Weigh Daily- Call MD for wt gain/loss 3 lbs overnight/5 lbs in 1 week
Activity Restrictions/Additional Instructions:
After discharge should be seen by family physician, preferably in office within 1 to 2 weeks of discharge
Will follow-up with orthopedist in 2 weeks for clip removal, 4 weeks for repeat x-ray of the right hip
Dressings to be changed 7 days after discharge
Weightbearing as tolerated with walker
Instructions: Femur fracture
Referrals:
Todd Allen MD [Active] - (f/u 2 weeks from [facility]. )
Juan Diego López MD [Family Provider] -
Additional Discharge Medication Instructions: Continue oxycodone 5 mg as needed for moderate to severe pain
Tylenol as needed for mild pain
Aspirin 325 mg daily for 6 weeks for DVT prophylaxis
Prescriptions:
New
oxycodone 5 mg Tablet
5 mg PO Q4HPRN PRN (Reason: moderate - severe pain) 5 Days Qty: 20 0RF
aspirin 325 mg Tablet
325 mg PO DAILY 30 Days Qty: 30 0RF
Continued
atorvastatin [Lipitor] 40 mg Tablet
40 mg PO DAILY
tamsulosin [Flomax] 0.4 mg Capsule
0.4 mg PO QPM
esomeprazole magnesium 40 mg Capsule,Delayed Release(Dr/Ec)
40 mg PO DAILY
finasteride 5 mg Tablet
5 mg PO DAILY
metoprolol tartrate 25 mg Tablet
25 mg PO BID
mirtazapine 15 mg Tablet
7.5 mg PO HS
acetaminophen [Tylenol] 325 mg Tablet
650 mg PO Q4HPRN PRN (Reason: fever)
erythromycin 5 mg/gram (0.5 %) Ointment
0.25 inch LEFT EYE BID
ferrous sulfate 325 mg (65 mg iron) Tablet
325 mg PO BID
fluticasone propionate 50 mcg/actuation Zachary,Suspension
2 spray INTRANASAL DAILY
cyclosporine [Restasis] 0.05 % Dropperette
1 drp BOTH EYES Q12H
carboxymethylcell-hypromellose 0.25-0.3 % Drops, Liquid Gel
1 drp BOTH EYES HS
latanoprost 0.005 % Drops
1 drp BOTH EYES BID
lactulose [Enulose] 10 gram/15 mL Solution
30 g PO DAILY
sennosides [senna] 8.6 mg Tablet
8.6 mg PO DAILYPRN PRN (Reason: constipation)
bisacodyl [Dulcolax (bisacodyl)] 10 mg Suppository
10 mg IN DAILYPRN PRN (Reason: if no bm aftr mom)
Fleet Enema 19-7 gram/118 mL Enema
118 ml IN DAILYPRN PRN (Reason: constipation)
Discontinued
aspirin 81 mg Tablet,Delayed Release (Dr/Ec)
81 mg PO DAILY
Discharge Orders:
Discharge Patient (As Directed); Ordered 05/24/24
Ordered By: Gen Cuevas
Discharge Date and Time
Print Language: DIVEHI
[2024-05-24] MEDS: HEPARIN 2000 UNITS INTRACATH (15:15)
[2024-05-24 15:40] VITALS: BP 102/59
[2024-05-24] MEDS: TYLENOL PO (15:58)
== END 2024-05-24 17:08 | DRG 480 ==
LOC: 2 NORTH 03:11
PROVIDERS: Clinical Nurse Specialist Family Health; Student in an Organized Health Care Education/Training Program; ADMITTING PHYSICIAN Internal Medicine; ATTENDING PHYSICIAN Internal Medicine; CONSULT PHYSICIAN Orthopaedic Surgery; EMERGENCY PHYSICIAN Student in an Organized Health Care Education/Training Program; FAMILY PHYSICIAN Internal Medicine; OTHER PHYSICIAN Specialist
PROC: 0SH904Z Insertion of Internal Fixation Device into Right Hip Joint, Open Approach (ICD-10-PCS; 2024-05-22)
DX: S72.141A Displaced intertrochanteric fracture of right femur, initial encounter for closed fracture (principal); N18.6 End stage renal disease; I13.2 Hypertensive heart and chronic kidney disease with heart failure and with stage 5 chronic kidney disease, or end stage renal disease; N17.9 Acute kidney failure, unspecified; Z99.2 Dependence on renal dialysis; E11.22 Type 2 diabetes mellitus with diabetic chronic kidney disease; Z66 Do not resuscitate; Z87.891 Personal history of nicotine dependence; Z79.82 Long term (current) use of aspirin; S72.144A Nondisplaced intertrochanteric fracture of right femur, initial encounter for closed fracture; W07.XXXA Fall from chair, initial encounter
CPT/HCPCS: 73502; 76000; 80048; 80053; 85025; 85610; 85730; 87340; 97110; 97162; 97166; C1713; G0257; P9047; Q5106